=== PATIENT | female | born 1960 | race Caucasian/White ===

== ENCOUNTER 2020-04-17 19:23 | Emergency (ER) | payer SELFPAY ==
[2020-04-17 19:55] VITALS: BP 177/94; PULSE 79; RESP 16; TEMP 36.7; O2SAT 97; BMI 25.3
--- NOTE | 2020-04-18 | ECG_ITS ---
Test Reason : CHEST PAIN Blood Pressure : / mmHG Vent. Rate : 084 BPM Atrial Rate : 084 BPM P-R Int : 132 ms QRS Dur : 100 ms QT Int : 384 ms P-R-T Axes : 037 -17 038 degrees QTc Int : 453 ms Normal sinus rhythm RSR' or QR pattern in V1 suggests right ventricular conduction delay Nonspecific ST and T wave abnormality Abnormal ECG When compared with ECG of 27-NOV-2019 15:55, No significant change was found Referred By: Thom Siddiqui Electronically Signed By:BRADY GIORDANO MD
== END 2020-04-17 21:22 | disposition left against medical advice (07) ==
PROVIDERS: Emergency Provider Internal Medicine; PCP Internal Medicine
DX: R07.9 Chest pain, unspecified (principal)
CPT/HCPCS: 93005; 99283

== ENCOUNTER 2020-04-18 10:51 | Inpatient (IN) | payer OTHER, SELFPAY ==
[2020-04-18] VITALS (7 sets, daily range): BP systolic 137–177; BP diastolic 84–100; PULSE 67–78; RESP 14–23; TEMP 36.4–36.9; O2SAT 16–99; BMI 24.9; BMI 25.5
--- NOTE | 2020-04-18 11:21 | ECG_ITS ---
Test Reason : ABNORMAL EKG Blood Pressure : / mmHG Vent. Rate : 065 BPM Atrial Rate : 065 BPM P-R Int : 138 ms QRS Dur : 104 ms QT Int : 434 ms P-R-T Axes : 039 -23 029 degrees QTc Int : 451 ms Normal sinus rhythm Nonspecific ST and T wave abnormality Abnormal ECG When compared with ECG of 18-APR-2020 11:49, No significant change was found Referred By: Elaine Rasheed Electronically Signed By:BRADY GIORDANO MD
--- NOTE | 2020-04-18 11:37 | PC.NURSE ---
DR ROSE AT THE BEDSIDE FOR INITIAL EVALUATION PT, PT INFORMED OF THE PLAN OF CARE PLACED ON THE EVENT COORDINATOR, NSR DISPLAYED
--- NOTE | 2020-04-18 11:46 | ECG_ITS ---
Test Reason : REPEAT Blood Pressure : / mmHG Vent. Rate : 071 BPM Atrial Rate : 071 BPM P-R Int : 132 ms QRS Dur : 100 ms QT Int : 428 ms P-R-T Axes : 032 -34 032 degrees QTc Int : 465 ms Normal sinus rhythm Left axis deviation Pulmonary disease pattern ST & T wave abnormality, consider lateral ischemia Abnormal ECG When compared with ECG of 04/17/20 T wave inversion more evident in Lateral leads Referred By: Elaine Rasheed Electronically Signed By:BRADY GIORDANO MD
--- NOTE | 2020-04-18 11:46 | ED.CHESTPAIN ---
HPI - Chest Pain General Chief Complaint: Chest Pain Stated Complaint: chest pain,abd pain,hbp Time Seen by Provider: 04/18/20 11:24 Source: patient Mode of arrival: ambulatory Limitations: no limitations History of Present Illness HPI narrative: Patient comes to emergency room complaining of high blood pressure, chest discomfort, abdominal epigastric discomfort. Patient states it has been intermittent for the last 4 days. Patient came here yesterday, EKG was done in triage, patient could not wait to be seen by provider. At this time, patient does not have significant discomfort. Prior to arrival patient took 81 mg of aspirin. Patient also complaining of intermittent episodes of sweating Related Data Home Medications Medication Instructions Recorded Confirmed bupropion HCl 300 mg PO QAM 04/11/20 04/11/20 levothyroxine 50 mcg PO DAILY 04/11/20 04/11/20 lisinopril 10 mg PO DAILY 04/11/20 04/11/20 lorazepam [Ativan] 0.5 mg PO DAILY PRN 04/11/20 04/11/20 mecobalamin (vitamin B12) [B12 1,000 mcg PO DAILY 04/11/20 04/11/20 Active] metoprolol succinate 50 mg PO DAILY 04/11/20 04/11/20 multivitamin 1 cap PO DAILY 04/11/20 04/11/20 zinc 50 mg PO DAILY 04/11/20 04/11/20 Previous Rx's Medication Instructions Recorded fluoxetine [Prozac] 10 mg PO DAILY #14 cap 04/17/20 Allergies Allergy/AdvReac Type Severity Reaction Status Date / Time Penicillins [PENICILLINS] Allergy Intermediate RASH Verified 04/09/20 13:53 egg Allergy Unknown stomach Verified 04/09/20 13:53 upset penicillin V Allergy Unknown rash Verified 04/09/20 13:53 cat dander Allergy Difficulty Verified 04/11/20 14:58 Breathing Review of Systems Review of Systems: Constitutional : No Weight loss, complaining of chills, night sweats, fatigue ENT/Mouth : No Hearing loss, No Ear Pain, No Nasal Congestion, No Sinus Pain, No Hoarseness, No sore throat, No Rhinorrhea, No Swallowing Difficulty Eyes: No Eye Pain, No Swelling, No Redness, No Foreign Body, No Discharge, No Vision Changes Cardiovascular : complaining of chest pressure, No SOB, No Dyspnea on Exertion, No Orthopnea, No Edema, No Palpitations Respiratory : No Cough, No Sputum, No Wheezing, No Smoke Exposure, No Dyspnea Gastrointestinal : No Nausea, No Vomiting, No Diarrhea, No Constipation, complaining of mild epigastric pain Genitourinary : no irregular bleeding, No Dysuria, No Urinary Frequency, No Hematuria, No Urinary Incontinence, No Urgency, No Flank Pain, No Urinary Flow Changes, No Hesitancy Musculoskeletal : No joint pain, No Myalgias, No Joint Swelling Skin : No Skin Lesions, No rash Neuro : No Weakness, No Numbness, No Paresthesias, No Loss of Consciousness, No Dizziness, No Headache Psych : No Anxiety/Panic, No Depression, No SI/HI/AH/VH, No Social Issues, Heme/Lymph: No Bruising, No Bleeding,No Lymphadenopathy Endocrine : No Polyuria, No Polydipsia, No Temperature Intolerance [facility] Past Medical History Medical History (Updated 04/11/20 @ 20:47 by Fabi Diaz APRN) Jonathon's thyroiditis HTN (hypertension) Surgical History History of colonoscopy History of hysteroscopy History of surgery History of tonsillectomy Family History Family History (Updated 04/09/20 @ 13:59 by Tianna Serra Liza, [facility]) Father No problems noted. Mother No problems noted. Maternal Grandmother Breast cancer Brother Arthritis Brother No problems noted. Daughter No problems noted. Son No problems noted. Son No problems noted. Son No problems noted. Social History Social History Household Members: Significant Other Smoking Status: Never smoker Use of substances other than those prescribed or required for medical reasons: No Advance Directives: No Advance Directives Information Provided: No Physical Exam Vital Signs: Vital Signs: Vital Signs Temp Pulse Resp BP Pulse Ox 04/18/20 14:29 98.5 F 68 14 158/93 H 04/18/20 12:58 98 F 67 18 137/85 99 04/18/20 11:06 98 F 77 177/100 H 16 L Body Mass Index 24.9 Course Course Course Narrative: I discussed the EKG changes with Dr. Mulligan, is likely secondary to hypertension. at this time, the 2nd EKG shows persistent changes. Discussed with Dr. Mulligan, patient will be admitted, heparinize, and a stat echo is pending. I discussed the plan with the patient, agrees with plan. MDM - Chest Pain Lab Data Result diagrams: 04/18/20 12:15 04/18/20 12:15 Labs: Lab Results 04/18/20 04/18/20 04/18/20 Range/Units 12:14 12:14 12:15 WBC 4.5 L (4.8-10.8) X10*3/uL RBC 4.50 (4.20-5.50) X10*6/uL Hgb 14.8 (12.0-16.0) g/dl Hct 43.6 (37-47) % MCV 96.9 (80-98) fL MCH 32.9 (27.0-33.0) pg MCHC 33.9 (31.0-35.0) g/dl RDW 11.2 (11.0-16.0) % Plt Count 180 (160-400) X10*3/uL MPV 9.6 (9.4-12.3) fL Immature Gran % (Auto) 0.2 (0.0-0.4) % Neut % (Auto) 65.2 (45-73) % Lymph % (Auto) 24.4 (20-40) % Dickenson % (Auto) 6.2 (2-11) % Eos % (Auto) 3.1 (0-4) % Baso % (Auto) 0.9 (0-2) % Lymph # (Auto) 1.1 L (1.2-4.9) X10*3/uL Dickenson # (Auto) 0.3 (0.1-1.2) X10*3/uL Eos # (Auto) 0.1 (0.0-0.4) X10*3/uL Baso # (Auto) 0.0 (0.0-0.2) X10*3/uL Abs Immat Gran (auto) 0.01 (0.00-0.03) X10*3/uL Absolute Neuts (auto) 2.9 (2.0-8.3) X10*3/uL Absolute Nucleated RBC 0.000 (0.0-0.012) X10*3/uL Nucleated RBC % (auto) 0.0 (0.0-0.2) /100WBC Sodium (135-145) mmol/L Potassium (3.3-5.1) mmol/l Chloride (96-108) mmol/L Carbon Dioxide (22-29) mmol/L Anion Gap (12-20) BUN (9-16) mg/dL Creatinine (0.5-1.4) mg/dL Estim Creat Clear Calc Estimated GFR Random Glucose (60-115) mg/dL Calcium (8.4-10.2) mg/dL Total Bilirubin (0.0-1.0) mg/dL Direct Bilirubin (0.0-0.5) mg/dL AST (5-31) U/L ALT (0-31) U/L Alkaline Phosphatase (39-117) U/L Troponin I High Sens < 3.5 (<3.5-17.0) ng/L Total Protein (6.5-8.0) g/dL Albumin (3.5-5.0) g/dL Lipase (8-78) U/L TSH 2.67 (0.32-4.0) mIU/mL 04/18/20 Range/Units 12:15 WBC (4.8-10.8) X10*3/uL RBC (4.20-5.50) X10*6/uL Hgb (12.0-16.0) g/dl Hct (37-47) % MCV (80-98) fL MCH (27.0-33.0) pg MCHC (31.0-35.0) g/dl RDW (11.0-16.0) % Plt Count (160-400) X10*3/uL MPV (9.4-12.3) fL Immature Gran % (Auto) (0.0-0.4) % Neut % (Auto) (45-73) % Lymph % (Auto) (20-40) % Dickenson % (Auto) (2-11) % Eos % (Auto) (0-4) % Baso % (Auto) (0-2) % Lymph # (Auto) (1.2-4.9) X10*3/uL Dickenson # (Auto) (0.1-1.2) X10*3/uL Eos # (Auto) (0.0-0.4) X10*3/uL Baso # (Auto) (0.0-0.2) X10*3/uL Abs Immat Gran (auto) (0.00-0.03) X10*3/uL Absolute Neuts (auto) (2.0-8.3) X10*3/uL Absolute Nucleated RBC (0.0-0.012) X10*3/uL Nucleated RBC % (auto) (0.0-0.2) /100WBC Sodium 140 (135-145) mmol/L Potassium 4.4 (3.3-5.1) mmol/l Chloride 103 (96-108) mmol/L Carbon Dioxide 27 (22-29) mmol/L Anion Gap 14 (12-20) BUN 9 (9-16) mg/dL Creatinine 0.69 (0.5-1.4) mg/dL Estim Creat Clear Calc 83.1 Estimated GFR > 60 Random Glucose 104 (60-115) mg/dL Calcium 9.4 (8.4-10.2) mg/dL Total Bilirubin 0.9 (0.0-1.0) mg/dL Direct Bilirubin 0.4 (0.0-0.5) mg/dL AST 69 H (5-31) U/L ALT 68 H (0-31) U/L Alkaline Phosphatase 92 (39-117) U/L Troponin I High Sens (<3.5-17.0) ng/L Total Protein 7.1 (6.5-8.0) g/dL Albumin 4.5 (3.5-5.0) g/dL Lipase 22 (8-78) U/L TSH (0.32-4.0) mIU/mL ECG Data ECG #1: Attestation: I personally reviewed and interpreted this ECG as follows: ( normal sinus rhythm, heart rate 65, mild ST segment depressions in V3 V4 V5 with new T-wave inversions compared to EKG from yesterday) Discharge Plan Discharge Prescriptions: No Action metoprolol succinate 50 mg Tablet Extended Release 24 Hr 50 mg PO DAILY RF: 0 lorazepam [Ativan] 0.5 mg Tablet 0.5 mg PO DAILY PRN (Reason: Anxiety) RF: 0 levothyroxine 50 mcg Tablet 50 mcg PO DAILY RF: 0 lisinopril 10 mg Tablet 10 mg PO DAILY RF: 0 multivitamin Capsule 1 cap PO DAILY RF: 0 bupropion HCl 300 mg Tablet Extended Release 24 Hr 300 mg PO QAM RF: 0 zinc 50 mg Capsule 50 mg PO DAILY RF: 0 B12 Active 1,000 mcg Tablet,Chewable 1,000 mcg PO DAILY RF: 0 fluoxetine [Prozac] 10 mg capsule 10 mg PO DAILY Qty: 14 RF: 1
[2020-04-18 12:18] LABS: MANUAL DIFF FLAG NO
[2020-04-18 12:20] LABS: Basophils Percent Auto 0.9 % (0-2); Eosinophils Absolute Auto 0.1 X10*3/uL (0.0-0.4); Eosinophils Percent Auto 3.1 % (0-4); Hematocrit 43.6 % (37-47); Hemoglobin 14.8 g/dl (12.0-16.0); Imm Gran Abs Auto 0.01 X10*3/uL (0.00-0.03); Imm Gran Pct Auto 0.2 % (0.0-0.4); Lymphocytes Absolute Auto 1.1 X10*3/uL (1.2-4.9); Lymphocytes Percent Auto 24.4 % (20-40); Mean Corpuscular HGB Conc 33.9 g/dl (31.0-35.0); Mean Corpuscular Hemoglobin 32.9 pg (27.0-33.0); Mean Corpuscular Volume 96.9 fL (80-98); Mean Platelet Volume 9.6 fL (9.4-12.3); Monocytes Absolute Auto 0.3 X10*3/uL (0.1-1.2); Monocytes Percent Auto 6.2 % (2-11); Neutrophils Absolute Auto 2.9 X10*3/uL (2.0-8.3); Neutrophils Percent Auto 65.2 % (45-73); Platelet Count 180 X10*3/uL (160-400); Red Cell Distribution Width 11.2 % (11.0-16.0); White Blood Count 4.5 X10*3/uL (4.8-10.8)
[2020-04-18 12:54] LABS: Alanine Aminotransferase 68 U/L (0-31); Albumin Level 4.5 g/dL (3.5-5.0); Alkaline Phosphatase 92 U/L (39-117); Anion Gap 14 (12-20); Aspartate Amino Transferase 69 U/L (5-31); Bilirubin Direct 0.4 mg/dL (0.0-0.5); Bilirubin Total 0.9 mg/dL (0.0-1.0); Blood Urea Nitrogen 9 mg/dL (9-16); Calcium 9.4 mg/dL (8.4-10.2); Carbon Dioxide 27 mmol/L (22-29); Chloride 103 mmol/L (96-108); Creatinine Clr Calc Pharmacy 83.1; Estimated Glomerular Filt Rate > 60; Glucose Random 104 mg/dL (60-115); Lipase 22 U/L (8-78); Potassium 4.4 mmol/l (3.3-5.1); Sodium 140 mmol/L (135-145); Total Protein 7.1 g/dL (6.5-8.0)
[2020-04-18 13:00] LABS: Troponin-I High Sensitivity < 3.5 ng/L (<3.5-17.0)
[2020-04-18] MEDS: Aspirin Enteric Coated 325 MG TABLET.DR PO (13:13)
[2020-04-18 13:15] LABS: TSH reflex Free T4 2.67 mIU/mL (0.32-4.0)
[2020-04-18 15:53] LABS: Hematocrit 42.2 % (37-47); Hemoglobin 14.4 g/dl (12.0-16.0); Mean Corpuscular HGB Conc 34.1 g/dl (31.0-35.0); Mean Corpuscular Volume 96.8 fL (80-98); Platelet Count 196 X10*3/uL (160-400); Red Blood Count 4.36 X10*6/uL (4.20-5.50); Red Cell Distribution Width 11.3 % (11.0-16.0); White Blood Count 4.6 X10*3/uL (4.8-10.8)
[2020-04-18 15:59] LABS: Prothrombin Time 11.5 SEC (10.8-13.0)
[2020-04-18 16:02] LABS: PTT Heparin Drip 33.1 SEC (53-77.9)
[2020-04-18 16:24] LABS: Troponin-I High Sensitivity < 3.5 ng/L (<3.5-17.0)
[2020-04-18] MEDS: Heparin Sodium,Porcine 5,000 UNIT/ML VIAL 4000 UNIT IVPUSH (16:42)
[2020-04-18] MEDS: Heparin Sodium,Porcine/1/2NS 25,000 UNIT/250 ML IV.SOLN 9.8 UNIT IVCONT (16:47)
--- NOTE | 2020-04-18 16:57 | PC.NURSE ---
patient's medicated per emar as noted.
--- NOTE | 2020-04-18 17:13 | P.HPIM_ITS ---
History of Present Illness Date of Service: 04/18/20 <EDENILSON Landeros - Last Filed: 04/18/20 18:16> Chief Complaint: chest pain <EDENILSON Landeros - Last Filed: 04/18/20 18:16> this is a 59-year-old female with a history of hypertension , anxiety, thyroid disease who presents to the emergency department with chest pain. Patient has been having intermittent chest pain for the past 4 days. Her pain is located in the left side of her chest and under her armpit. She reports it feels like a bubble inside. it is described as 5/10 in severity and lasting a few seconds in duration. It does not seem to be associated with activity or deep inspiration. She has also been having intermittent nausea but not occurring at the same time as her chest pain. She does note her blood pressure has been somewhat elevated over the past few days. She came to the emergency department yesterday and had an EKG which was unremarkable. Unfortunately, she was unable to wait to be evaluated by a provider. She returned today due to recurrent pain and an EKG was repeated. Today EKG showed T-wave inversions in leads V3 through v5. Her cardiac enzymes were negative. Given her EKG changes the EKG was reviewed by Cardiology who recommended starting anticoagulation. She is currently chest pain free. <EDENILSON Landeros - Last Filed: 04/18/20 18:16> Review of Systems Review of Systems: Yes all other systems are reviewed and are negative <EDENILSON Landeros - Last Filed: 04/18/20 18:16> Cardiovascular: Cardiovascular: Reports chest pain and Denies dyspnea <EDENILSON Landeros - Last Filed: 04/18/20 18:16> Respiratory: Respiratory: Denies dyspnea <EDENILSON Landeros Last Filed: 04/18/20 18:16> Gastrointestinal: Gastrointestinal: Reports dyspepsia and Reports nausea <EDENILSON Landeros Last Filed: 04/18/20 18:16> [facility] Medical History: Medical History (Updated 04/19/20 @ 11:19 by Girish Mulligan MD) Anxiety Depression Jonathon's thyroiditis HTN (hypertension) <EDENILSON Landeros Last Filed: 04/18/20 18:16> Functional capacity: independent ambulation <EDENILSON Landeros - Last Filed: 04/18/20 18:16> Family History: Family History (Updated 04/18/20 @ 17:27 by EDENILSON Landeros) Father No problems noted. Mother No problems noted. Maternal Grandmother Breast cancer Brother Arthritis Brother No problems noted. Daughter No problems noted. Son No problems noted. Son No problems noted. Son No problems noted. Sister Congenital bicuspid aortic valve <EDENILSON Landeros - Last Filed: 04/18/20 18:16> Surgical History: Surgical History History of colonoscopy History of hysteroscopy History of surgery History of tonsillectomy <EDENILSON Landeros - Last Filed: 04/18/20 18:16> Social History: Social History (Updated 04/18/20 @ 17:28 by EDENILSON Landeros) Household Members: Significant Other Housing: House Do you presently have visiting nurse or other home services: No Alcohol intake: current Alcohol intake frequency: 0-2 drinks per day Alcohol type: wine Smoking Status: Never smoker Smoked in Last 30 Days: No Use of substances other than those prescribed or required for medical reasons: No Currently Displaying Signs/Symptoms of Drug Intoxication Withdrawal: No Have you been hit, kicked, punched, or otherwise hurt by someone within the past year? If so, by whom?: No Do you feel safe in your current relationship?: Yes Is there a partner from a previous relationship who is making you feel unsafe now?: No Are you made to feel afraid or neglected: No Advance Directives: No Advance Directives Information Provided: No Do you have thoughts of harming others: None Do you have a plan to hurt others: No Plan Recently lost weight without trying: No service: No <EDENILSON Landeros - Last Filed: 04/18/20 18:16> Meds Allergies/Adverse reactions: Allergies Allergy/AdvReac Type Severity Reaction Status Date / Time Penicillins [PENICILLINS] Allergy Intermediate RASH Verified 04/09/20 13:53 egg Allergy Unknown stomach Verified 04/09/20 13:53 upset penicillin V Allergy Unknown rash Verified 04/09/20 13:53 cat dander Allergy Difficulty Verified 04/11/20 14:58 Breathing <EDENILSON Landeros Last Filed: 04/18/20 18:16> Home medications: Home Medications Medication Instructions Recorded Confirmed Type bupropion HCl 300 mg PO QAM 04/11/20 04/18/20 History levothyroxine 50 mcg PO DAILY 04/11/20 04/18/20 History lorazepam [Ativan] 0.5 mg PO BEDTIME PRN 04/11/20 04/18/20 History metoprolol succinate 50 mg PO DAILY 04/11/20 04/18/20 History multivitamin 1 cap PO DAILY 04/11/20 04/18/20 History zinc 50 mg PO DAILY 04/11/20 04/18/20 History <EDENILSON Landeros Last Filed: 04/18/20 18:16> Physical Exam Vital Signs and Narrative: Vital Signs: Last Vital Signs Temp 98.5 F 04/18/20 14:29 Pulse 68 04/18/20 15:48 Resp 23 H 04/18/20 15:48 BP 167/98 H 04/18/20 15:48 Pulse Ox 98 04/18/20 15:48 Body Mass Index 25.5 <EDENILSON Landeros Last Filed: 04/18/20 18:16> Const: Nutritional Appearance: well nourished <EDENILSON Landeros Last Filed: 04/18/20 18:16> Orientation/consciousness: patient oriented x3 <EDENILSON Landeros Last Filed: 04/18/20 18:16> HENMT: Head: Yes normocephalic and Yes atraumatic <EDENILSON Landeros Last Filed: 04/18/20 18:16> Eyes: Sclerae: sclerae normal <EDENILSON Landeros Last Filed: 04/18/20 18:16> Chest: Chest palpation & inspection: normal inspection of the chest <EDENILSON Landeros Last Filed: 04/18/20 18:16> Resp: Effort & Inspection: normal respiratory effort and no respiratory distress <EDENILSON Landeros Last Filed: 04/18/20 18:16> Auscultation: clear to auscultation bilaterally <EDENILSON Landeros - Last Filed: 04/18/20 18:16> Cardio: Rate: regular rate <EDENILSON Landeros - Last Filed: 04/18/20 18:16> Rhythm: regular rhythm <EDENILSON Landeros - Last Filed: 04/18/20 18:16> GI: Palpation (GI): Soft to palpation and nontender <EDENILSON Landeros - Last Filed: 04/18/20 18:16> Skin: General skin exam: no rashes or lesions noted <EDENILSON Landeros - Last Filed: 04/18/20 18:16> Neuro: General: patient oriented x3 <EDENILSON Landeros - Last Filed: 04/18/20 18:16> Cranial nerves: Yes CN's II-XII intact bilaterally and Yes Bilaterally intact EOM present <EDENILSON Landeros - Last Filed: 04/18/20 18:16> Extrem: General: Yes normal to inspection <EDENILSON Landeros - Last Filed: 04/18/20 18:16> Results Labs Labs: Laboratory Tests 04/18/20 04/18/20 04/18/20 12:14 12:14 12:15 WBC 4.5 L RBC 4.50 Hgb 14.8 Hct 43.6 MCV 96.9 MCH 32.9 MCHC 33.9 RDW 11.2 Plt Count 180 MPV 9.6 Immature Gran % (Auto) 0.2 Neut % (Auto) 65.2 Lymph % (Auto) 24.4 [place] % (Auto) 6.2 Eos % (Auto) 3.1 Baso % (Auto) 0.9 Lymph # (Auto) 1.1 L [place] # (Auto) 0.3 Eos # (Auto) 0.1 Baso # (Auto) 0.0 Abs Immat Gran (auto) 0.01 Absolute Neuts (auto) 2.9 Absolute Nucleated RBC 0.000 Nucleated RBC % (auto) 0.0 PT INR PTT (Heparin Protocol) Sodium Potassium Chloride Carbon Dioxide Anion Gap BUN Creatinine Estim Creat Clear Calc Estimated GFR Random Glucose Calcium Total Bilirubin Direct Bilirubin AST ALT Alkaline Phosphatase Troponin I High Sens < 3.5 Total Protein Albumin Lipase TSH 2.67 04/18/20 04/18/20 04/18/20 12:15 15:42 15:42 WBC 4.6 L RBC 4.36 Hgb 14.4 Hct 42.2 MCV 96.8 MCH 33.0 MCHC 34.1 RDW 11.3 Plt Count 196 MPV 10.0 Immature Gran % (Auto) Neut % (Auto) Lymph % (Auto) [place] % (Auto) Eos % (Auto) Baso % (Auto) Lymph # (Auto) [place] # (Auto) Eos # (Auto) Baso # (Auto) Abs Immat Gran (auto) Absolute Neuts (auto) Absolute Nucleated RBC 0.000 Nucleated RBC % (auto) 0.0 PT INR PTT (Heparin Protocol) Sodium 140 Potassium 4.4 Chloride 103 Carbon Dioxide 27 Anion Gap 14 BUN 9 Creatinine 0.69 Estim Creat Clear Calc 83.1 Estimated GFR > 60 Random Glucose 104 Calcium 9.4 Total Bilirubin 0.9 Direct Bilirubin 0.4 AST 69 H ALT 68 H Alkaline Phosphatase 92 Troponin I High Sens < 3.5 Total Protein 7.1 Albumin 4.5 Lipase 22 TSH 04/18/20 15:42 WBC RBC Hgb Hct MCV MCH MCHC RDW Plt Count MPV Immature Gran % (Auto) Neut % (Auto) Lymph % (Auto) [place] % (Auto) Eos % (Auto) Baso % (Auto) Lymph # (Auto) [place] # (Auto) Eos # (Auto) Baso # (Auto) Abs Immat Gran (auto) Absolute Neuts (auto) Absolute Nucleated RBC Nucleated RBC % (auto) PT 11.5 INR 1.0 PTT (Heparin Protocol) 33.1 L Sodium Potassium Chloride Carbon Dioxide Anion Gap BUN Creatinine Estim Creat Clear Calc Estimated GFR Random Glucose Calcium Total Bilirubin Direct Bilirubin AST ALT Alkaline Phosphatase Troponin I High Sens Total Protein Albumin Lipase TSH <EDENILSON Landeros - Last Filed: 04/18/20 18:16> Assessment and Plan (1) Chest pain: Status: Acute <EDENILSON Landeros - Last Filed: 04/18/20 18:16> this is a 59-year-old female with a history of hypertension, thyroid disease, anxiety, depression who presents to the emergency department with chest pain found to have new EKG changes unstable angina troponin negative x2. although chest pain sounds atypical, EKG showing new T- wave inversions when compared to yesterday - anticoagulation with heparin per Cardiology recommendation - lipid profile - statin, baby aspirin - continue home dose of metoprolol - echocardiogram - cardiology consult to help direct further management hypertension somewhat elevated - continue lisinopril, metoprolol - monitor blood pressure closely and up titrate medication as needed thyroid - continue Synthroid mode - continue bupropion, fluoxetine, Ativan daily alcohol use low risk for withdrawal. no evidence for withdrawal at this time. -CIWA DVT prophylaxis- heparin drip code status- full code this case was discussed with Dr. Corado <EDENILSON Landeros - Last Filed: 04/18/20 18:16>
--- NOTE | 2020-04-18 17:46 | PM.EVENT ---
Event Note Event Note: Patient seen and examined. Case discussed with EDENILSON Glass. Agree with her history and physical. 59 yo F being admitted for EKG changes and atypical chest pain. On heparin Gtt Cardiology consult echo ativan for her anxiety
[2020-04-18 18:44] LABS: SARS COV2 PCR INHOUSE NEGATIVE (Negative)
--- NOTE | 2020-04-18 20:24 | PC.NURSE ---
PATIENT CALLED TO GIVE REPORT TO FLOOR. I WAS TOLD THAT THE RN WOULD CALL ME BACK
[2020-04-18] MEDS: Atorvastatin Calcium 40 MG TABLET PO (21:39)
[2020-04-18] MEDS: 0.9 % Sodium Chloride Flush 3 ML SYRINGE IVFLUSH (21:40)
[2020-04-18] MEDS: LORazepam 0.5 MG TABLET PO (21:40)
[2020-04-18 23:24] LABS: PTT Heparin Drip 94.1 SEC (53-77.9)
--- NOTE | 2020-04-19 | ECG_ITS ---
Test Reason : CHEST PAIN Blood Pressure : / mmHG Vent. Rate : 065 BPM Atrial Rate : 065 BPM P-R Int : 156 ms QRS Dur : 102 ms QT Int : 410 ms P-R-T Axes : 039 -22 020 degrees QTc Int : 426 ms Normal sinus rhythm ST & T wave abnormality, consider anterolateral ischemia Abnormal ECG When compared with ECG of 18-APR-2020 14:43, No significant change was found Referred By: Elaine Rasheed Electronically Signed By:BRADY GIORDANO MD
--- NOTE | 2020-04-19 00:52 | PC.NURSE ---
PTT HD RSULTED HIGH AT 94.1. GTT TURNED OFF FOR 1 HOUR PER PROTOCOL AND RESTARTED AT 0040 AT 11 UNITS/KG/HR. DRIP WAS DECREASED BY 3UNITS/KG/HR. NO S/SX BLEEDING. NEXT PTT-HD DUE AT 0640. WILL CONTIUE TO MONITOR. CALL [facility] IN REACH.
[2020-04-19 03:12] VITALS: BP 144/77; PULSE 76; RESP 18; TEMP 37; O2SAT 98
[2020-04-19 06:48] LABS: Cholesterol 191 mg/dL; HDL Cholesterol 50 mg/dL; LDL Cholesterol Calculated 88 mg/dl; Triglycerides 266 mg/dL
[2020-04-19 06:54] LABS: Hemoglobin 13.6 g/dl (12.0-16.0); Mean Corpuscular Volume 99.5 fL (80-98); PLT CLUMP 1; Red Cell Distribution Width 11.2 % (11.0-16.0)
[2020-04-19 06:56] LABS: Hematocrit 40.3 % (37-47); Mean Corpuscular HGB Conc 33.7 g/dl (31.0-35.0); Mean Corpuscular Hemoglobin 33.6 pg (27.0-33.0); Red Blood Count 4.05 X10*6/uL (4.20-5.50); White Blood Count 5.3 X10*3/uL (4.8-10.8)
[2020-04-19 06:57] LABS: INTERNATIONAL NORM RATIO 0.9 (0.9-1.1); Prothrombin Time 10.9 SEC (10.8-13.0)
[2020-04-19 07:20] VITALS: BP 137/82; RESP 18; TEMP 36.6; O2SAT 97
[2020-04-19 07:35] LABS: Platelet Count 122 X10*3/uL (160-400)
--- NOTE | 2020-04-19 09:01 | MHC.CM.PN ---
Addendum entered by Alea Beaulieu 04/19/20 11:03: change in plan Original Note: pt being transferred to [facility]
--- NOTE | 2020-04-19 10:48 | PM.CNCAR ---
History of Present Illness History of Present Illness Date of Consult: April 19, 2020 Requesting physician: Sid Corado Chief complaint: Unstable angina, abnormal ECG Narrative: 59-year-old female with abnormal ECG and chest discomfort. She has background of anxiety and panic attacks. She was seen by Dr Haynes in 2017 for high BP and anterolateral TWI with ST depressions. These changes were thought to be due to elevated BP. She report subsequent work including stress testing/echo and was told that it was normal. She now presented with 1 week h/o feeling sweat, chills and abdominal pain after eating seafood. She also had off and on left sided pressure like feeling lasting few seconds and which would come in waves. With these symptoms she came in on 04/17/20 but left AMA. 04/18/20 she presented again but ECG showed anterolateral TWI which were not obvious on 04/17/20 ECG. Her BP was high 2nd time. She has been ruled out with 2 sets of HS troponins. Her of cancer in Apr 2 years ago and she has been emotional. She is currently on heparin gtt. No other active issues right now. BP is better now. Review of Systems Review of Systems: Is symptomatic right now. Came with abdominal discomfort, chills, sweating and chest discomfort PMFSH Past Medical History Medical History (Updated 04/19/20 @ 11:19 by Girish Mulligan MD) Anxiety Depression Jonathon's thyroiditis HTN (hypertension) Functional capacity: independent ambulation Family History Family History (Updated 04/18/20 @ 17:27 by EDENILSON Landeros) Father No problems noted. Mother No problems noted. Maternal Grandmother Breast cancer Brother Arthritis Brother No problems noted. Daughter No problems noted. Son No problems noted. Son No problems noted. Son No problems noted. Sister Congenital bicuspid aortic valve Surgical History Surgical History History of colonoscopy History of hysteroscopy History of surgery History of tonsillectomy Social History Social History (Updated 04/18/20 @ 17:28 by EDENILSON Landeros) Household Members: Significant Other Housing: House Do you presently have visiting nurse or other home services: No Alcohol intake: current Alcohol intake frequency: 0-2 drinks per day Alcohol type: wine Smoking Status: Never smoker Smoked in Last 30 Days: No Use of substances other than those prescribed or required for medical reasons: No Have you been hit, kicked, punched, or otherwise hurt by someone within the past year? If so, by whom?: No Do you feel safe in your current relationship?: Yes Is there a partner from a previous relationship who is making you feel unsafe now?: No Are you made to feel afraid or neglected: No Advance Directives: No Advance Directives Information Provided: No Do you have thoughts of harming others: None Do you have a plan to hurt others: No Plan Recently lost weight without trying: No Meds Allergies Allergy/AdvReac Type Severity Reaction Status Date / Time Penicillins [PENICILLINS] Allergy Intermediate RASH Verified 04/09/20 13:53 egg Allergy Unknown stomach Verified 04/09/20 13:53 upset penicillin V Allergy Unknown rash Verified 04/09/20 13:53 cat dander Allergy Difficulty Verified 04/11/20 14:58 Breathing Home Medications Medication Instructions Recorded Confirmed Type bupropion HCl 300 mg PO QAM 04/11/20 04/18/20 History levothyroxine 50 mcg PO DAILY 04/11/20 04/18/20 History lisinopril 10 mg PO DAILY 04/11/20 04/18/20 History lorazepam [Ativan] 0.5 mg PO BEDTIME PRN 04/11/20 04/18/20 History metoprolol succinate 50 mg PO DAILY 04/11/20 04/18/20 History multivitamin 1 cap PO DAILY 04/11/20 04/18/20 History zinc 50 mg PO DAILY 04/11/20 04/18/20 History Physical Exam Vital Signs: Vital Signs: Last Vital Signs Temp 98 F 04/19/20 07:20 Pulse 76 04/19/20 03:12 Resp 18 04/19/20 07:20 BP 137/82 04/19/20 07:20 Pulse Ox 97 04/19/20 07:20 Body Mass Index 25.5 GENERAL APPEARANCE: in no acute distress, well developed, well nourished. HEENT: unremarkable. HEAD: normocephalic, atraumatic. NECK/THYROID: no carotid bruit, no jugular venous distention. SKIN: no suspicious lesions, warm and dry. HEART: no murmurs, regular rate and rhythm, S1, S2 normal. LUNGS: clear to auscultation bilaterally. ABDOMEN: normal, bowel sounds present, soft, nontender, nondistended. EXTREMITIES: no clubbing, cyanosis, or edema. PERIPHERAL PULSES: equal. NEUROLOGIC: nonfocal, alert and oriented. PSYCH: mood/affect full range. Results Labs and Meds Result diagrams: 04/19/20 05:25 04/18/20 12:15 Lab results: Laboratory Results - last 24 hr 04/18/20 04/18/20 04/18/20 12:14 12:14 12:15 WBC 4.5 L RBC 4.50 Hgb 14.8 Hct 43.6 MCV 96.9 MCH 32.9 MCHC 33.9 RDW 11.2 Plt Count 180 MPV 9.6 Immature Gran % (Auto) 0.2 Neut % (Auto) 65.2 Lymph % (Auto) 24.4 [place] % (Auto) 6.2 Eos % (Auto) 3.1 Baso % (Auto) 0.9 Lymph # (Auto) 1.1 L [place] # (Auto) 0.3 Eos # (Auto) 0.1 Baso # (Auto) 0.0 Abs Immat Gran (auto) 0.01 Absolute Neuts (auto) 2.9 Absolute Nucleated RBC 0.000 Nucleated RBC % (auto) 0.0 PT INR PTT (Heparin Protocol) Sodium Potassium Chloride Carbon Dioxide Anion Gap BUN Creatinine Estim Creat Clear Calc Estimated GFR Random Glucose Calcium Total Bilirubin Direct Bilirubin AST ALT Alkaline Phosphatase Troponin I High Sens < 3.5 Total Protein Albumin Triglycerides Cholesterol LDL Cholesterol, Calc HDL Cholesterol Lipase TSH 2.67 Coronavirus (PCR) 04/18/20 04/18/20 04/18/20 12:15 15:42 15:42 WBC 4.6 L RBC 4.36 Hgb 14.4 Hct 42.2 MCV 96.8 MCH 33.0 MCHC 34.1 RDW 11.3 Plt Count 196 MPV 10.0 Immature Gran % (Auto) Neut % (Auto) Lymph % (Auto) [place] % (Auto) Eos % (Auto) Baso % (Auto) Lymph # (Auto) [place] # (Auto) Eos # (Auto) Baso # (Auto) Abs Immat Gran (auto) Absolute Neuts (auto) Absolute Nucleated RBC 0.000 Nucleated RBC % (auto) 0.0 PT INR PTT (Heparin Protocol) Sodium 140 Potassium 4.4 Chloride 103 Carbon Dioxide 27 Anion Gap 14 BUN 9 Creatinine 0.69 Estim Creat Clear Calc 83.1 Estimated GFR > 60 Random Glucose 104 Calcium 9.4 Total Bilirubin 0.9 Direct Bilirubin 0.4 AST 69 H ALT 68 H Alkaline Phosphatase 92 Troponin I High Sens < 3.5 Total Protein 7.1 Albumin 4.5 Triglycerides Cholesterol LDL Cholesterol, Calc HDL Cholesterol Lipase 22 TSH Coronavirus (PCR) 04/18/20 04/18/20 04/18/20 15:42 15:42 22:47 WBC RBC Hgb Hct MCV MCH MCHC RDW Plt Count MPV Immature Gran % (Auto) Neut % (Auto) Lymph % (Auto) [place] % (Auto) Eos % (Auto) Baso % (Auto) Lymph # (Auto) [place] # (Auto) Eos # (Auto) Baso # (Auto) Abs Immat Gran (auto) Absolute Neuts (auto) Absolute Nucleated RBC Nucleated RBC % (auto) PT 11.5 INR 1.0 PTT (Heparin Protocol) 33.1 L 94.1 H D Sodium Potassium Chloride Carbon Dioxide Anion Gap BUN Creatinine Estim Creat Clear Calc Estimated GFR Random Glucose Calcium Total Bilirubin Direct Bilirubin AST ALT Alkaline Phosphatase Troponin I High Sens Total Protein Albumin Triglycerides Cholesterol LDL Cholesterol, Calc HDL Cholesterol Lipase TSH Coronavirus (PCR) NEGATIVE 04/19/20 04/19/20 04/19/20 05:25 05:25 05:25 WBC 5.3 RBC 4.05 L Hgb 13.6 Hct 40.3 MCV 99.5 H MCH 33.6 H MCHC 33.7 RDW 11.2 Plt Count 122 L D MPV Not Reportable Immature Gran % (Auto) Neut % (Auto) Lymph % (Auto) [place] % (Auto) Eos % (Auto) Baso % (Auto) Lymph # (Auto) [place] # (Auto) Eos # (Auto) Baso # (Auto) Abs Immat Gran (auto) Absolute Neuts (auto) Absolute Nucleated RBC 0.000 Nucleated RBC % (auto) 0.0 PT 10.9 INR 0.9 PTT (Heparin Protocol) Cancelled Sodium Potassium Chloride Carbon Dioxide Anion Gap BUN Creatinine Estim Creat Clear Calc Estimated GFR Random Glucose Calcium Total Bilirubin Direct Bilirubin AST ALT Alkaline Phosphatase Troponin I High Sens Total Protein Albumin Triglycerides Cholesterol LDL Cholesterol, Calc HDL Cholesterol Lipase TSH Coronavirus (PCR) 04/19/20 05:25 WBC RBC Hgb Hct MCV MCH MCHC RDW Plt Count MPV Immature Gran % (Auto) Neut % (Auto) Lymph % (Auto) [place] % (Auto) Eos % (Auto) Baso % (Auto) Lymph # (Auto) [place] # (Auto) Eos # (Auto) Baso # (Auto) Abs Immat Gran (auto) Absolute Neuts (auto) Absolute Nucleated RBC Nucleated RBC % (auto) PT INR PTT (Heparin Protocol) Sodium Potassium Chloride Carbon Dioxide Anion Gap BUN Creatinine Estim Creat Clear Calc Estimated GFR Random Glucose Calcium Total Bilirubin Direct Bilirubin AST ALT Alkaline Phosphatase Troponin I High Sens Total Protein Albumin Triglycerides 266 Cholesterol 191 LDL Cholesterol, Calc 88 HDL Cholesterol 50 Lipase TSH Coronavirus (PCR) Assessment and Plan (1) Chest pain: Qualifiers: Chest pain type: unspecified Qualified Code(s): R07.9 - Chest pain, unspecified Status: Acute (2) HTN (hypertension): Qualifiers: Hypertension type: essential hypertension Qualified Code(s): I10 - Essential (primary) hypertension Status: Acute (3) Abnormal ECG: Status: Acute pleasant 59-year-old female who is here for multiple complaints. She has been experiencing abdominal discomfort, chills and sweating after she ate seafood over the weekend. Symptoms sound like gastroenteritis. She also is experiencing left-sided pressure-like chest discomfort which comes and goes for seconds at rest. This does not happen when she moves. Her ECG is abnormal showing anterolateral T-wave inversions and mild ST depressions. These changes are new compared to April 17 but reviewing her records from before she presented in 2018 with some atypical chest discomfort and had similar EKG changes. She was seen by Dr. Serafin dan over that time and it appears she had stress testing done which she reports was normal. I will get the records of that. For now I think we would check an echocardiogram to make sure she does not have a wall motion abnormality. Her troponins are negative. If echo is normal I think we control of blood pressure which was elevated on admission. Her presentation in 2018 was also in the setting of high blood pressure and it was thought that her ECG changes were due to hypertension. We will follow along with you. Thank you for allowing me to participate in the care of your patient. Please feel free to contact me if you have any questions.
[2020-04-19] MEDS: buPROPion HCl XL 300 MG TAB.ER.24H PO (10:51)
[2020-04-19] MEDS: Levothyroxine Sodium 50 MCG TABLET PO (10:51)
[2020-04-19] MEDS: Aspirin Enteric Coated 81 MG TABLET.DR PO (10:51)
[2020-04-19] MEDS: Metoprolol Succinate ER 50 MG TAB.ER.24H PO (10:52)
[2020-04-19] MEDS: lisinopriL 10 MG TABLET PO (10:52)
[2020-04-19 11:33] LABS: PTT Heparin Drip 63.8 SEC (53-77.9)
[2020-04-19 12:00] VITALS: BP 149/97; PULSE 74; RESP 19; TEMP 36.1; O2SAT 99
--- NOTE | 2020-04-19 12:29 | MHC.CM.PN ---
met with pt who explinsm that she is indepdendent her car is in parking lot and she will be leaving next fri to go to her condo in [place] and mwill be nthere till roz cm intervention are not indicated
--- NOTE | 2020-04-19 15:03 | CA_ITS ---
Transthoracic Echocardiogram Patient (Last, First, Middle): Leigh Ann Schulte C Gender: Female Date of : 1960 Age: 59 Procedure Date: 04/19/2020 Procedure Type: Transthoracic Echocardiogram Location: [facility] [place] Height: 167. cm Weight: 72. kg BSA: 1.81 m2 Heart Rate: bpm BP: 144 / 77 mmHg Driller Hand: Referring MD: Elaine Rasheed MD Symptoms: new t wave inversions, requested by Dr. Mulligan Study Quality: Fair ECG Rhythm: Sinus Conclusions: - Normal biventricular function. No significant valvular or pericardial pathology noted. Normal PA pressures. Findings Procedure Information Contrast agent, definity, is being given per protocol without apparent complications. Left Ventricle Normal left ventricular size and systolic function. There is mildly increased left ventricular wall thickness. The visually estimated ejection fraction is between 55-60%. There is no evidence of regional wall motion abnormalities. Diastolic function is normal for age. Right Ventricle Normal right ventricular cavity size and systolic function. Atria Both atria are normal in size. There is no evidence of interatrial shunt by color Doppler. Aortic Valve The aortic valve was not well visualized. There is no aortic valve stenosis. There is no aortic valve regurgitation. Mitral Valve Normal mitral valve structure and function. There is trace mitral valve regurgitation. There is no mitral valve stenosis. Pulmonic Valve The pulmonic valve is likely normal. Tricuspid Valve Normal tricuspid valve structure and function. There is no tricuspid valve regurgitation. Normal right atrial pressure. There is no evidence of pulmonary hypertension. Great Vessels All visible segments of the aorta are normal in size. The visualized portions of the pulmonary artery and branches are normal. Venous The inferior vena cava is normal in size and collapses greater than 50% with inspiration. Pericardium/Pleural There is no evidence of pericardial effusion. Measurements 2D Linear Measurements IVSd: 0.92 0.6-0.9/0.6-1.0 cm LVIDd: 4.68 3.9-5.3/4.2-5.9 cm LVIDd Index: 2.59 2.4-3.2/2.2-3.1 cm/m2 LVIDs: 2.62 2.0-3.6 cm LVPWd: 1.07 0.7-1.1 cm Ao Root: 2.90 2.1-3.5 cm LA Diam: 3.70 2.7-3.8/3.0-4.0 cm LAIDs Index: 2.04 1.5-2.3 cm/m2 LV Mass: 202.56 67-162/88-224 g LV Mass Index: 111.91 43-95/49-115 g/m2 LVOT Diam: 2.30 3.0+(-)1.3 cm Mitral Valve MV Pk E: 0.51 MV PK A: 0.75 MV Decel Time: 185.00 E/A: 0.70 E'Lateral: 7.83 E'Medial: 5.22 E/E' Med: 9.70 E/E' Lat: 6.50 PHT: 54.00 MVA PHT: 4.07 Decel Dixon: 2.73 Aortic Valve AoV Pk Leonardo: 1.28 AoV Mn Leonardo: 0.86 AoV VTI: 0.29 AoV Pk Grad: 7.00 Aov Mn Grad: 3.00 KRISTYN Cont.VTI: 2.65 LVOT LVOT Pk Leonardo: 0.85 LVOT Mn Leonardo: 0.57 LVOT VTI: 0.19 LVOT Pk Grad: 3.00 LVOT Mn Grad: 2.00 LVOT Diam: 2.30 LVOT Area: 4.15 Diastolic Function MV Pk E: 0.51 MV Pk A: 0.75 E/A: 0.70 E'Medial: 5.22 E/E' Med: 9.70 E' Laterial: 7.83 E/E' Lat: 6.50 Tricuspid Valve TR Pk Leonardo: 2.11 TR Pk Grad: 18.00 RA Press: 3.00 RVSP: 21.00 Great Vessels Aorta Ao Root-2D: 2.90 2.0-3.7 cm Pulmonary Valve PV Pk Leonardo: 0.75 Peak PV Grad: 2.00 Updated in Other Vendor System with Status of Final Girish Mulligan MD electronically signed on 04/19/2020 12:41:56 PM with status of Final
[2020-04-19 15:52] VITALS: BP 136/87; PULSE 75; RESP 18; TEMP 36.8; O2SAT 98
--- NOTE | 2020-04-19 15:54 | PM.DS ---
DS: Providers Provider Date of admission: 04/18/20 17:07 Primary care physician: Taina Coleman MD Consults: 04/18/20 19:45 Consult to Cardiology Routine Consulting Provider: Girish Mulligan Reason for consultation: chest pain with ekg changes Has provider been notified: No DS: Diagnosis Discharge Diagnosis (1) Chest pain: Status: Acute (2) HTN (hypertension): Status: Acute (3) Abnormal ECG: Status: Acute (4) Unstable angina: Status: Acute Problem details: Ruled Out DS: Summary Hospital Course Hospital Course: Patients presentation was concerning for possible unstable angina. She was started on IV heparin gtt and was admitted to telemetry. She was seen by cardiology (Dr. Mulligan) the morning after admission who compared the patients admission EKG to previous EKG's from 2018, which were deemded similar. She underwent a 2d Echo which showed norvmal Biventricular function and no RWMA. Her high sensitivity trop-I was negative x 2. Her chest pain had resolved. Putting all the above together, she was ruled out for ACS/Unstable angina. Cardiology recommended beta-shankar (which she is already on) + aspirin 81 (which she will be discharged on). They also recommended for her to f/u with her outpatient transfusion aide -- Dr. Haynes for outpatient stress test. Likely cause of her pain was not definitely identified, but suspect exacerbated by her psychosocial issues on going. Additionally, her BP was on the higher end and possibly could have contributed. Her lisinopril will be increased from 10mg to 20mg daily. Time Spent with Patient Time attestation: Total time spent providing and/or coordinating discharge services: Physical Exam Vital Signs: Vital Signs: Last Vital Signs Temp 96.9 F 04/19/20 12:00 Pulse 74 04/19/20 12:00 Resp 19 04/19/20 12:00 BP 149/97 H 04/19/20 12:00 Pulse Ox 99 04/19/20 12:00 Body Mass Index 25.5 General - no acute distress, appears comfortable Cardiovascular - regular rate and rhythm, S1-S2 Lungs - normal respiratory effort, clear to auscultation bilaterally, no wheezing Abdomen - soft, nontender, no rebound regarding Extremities - no edema bilaterally Neuro - awake and alert, no focal deficits DS: Data Data Completed and Pending Labs on day of discharge: 04/18/20 11:21 ECG 12 lead EKG Stat 04/18/20 11:30 0.9 % Sodium Chloride [Ns] 1,000 ml IVCONT 999 mls/hr 04/18/20 11:45 Aspirin Enteric Coated [Ecotrin] 325 mg PO ONCE ONE 04/18/20 11:46 ECG 12 lead EKG Stat EKG Documentation DIRECTED 04/18/20 12:14 TSH reflex Free T4 Stat Troponin-I High Sensitivity Stat 04/18/20 12:15 Basic Metabolic Panel Stat Complete Blood Count Auto Diff Stat Lipase Stat Liver Panel Stat 04/18/20 14:31 EKG Documentation DIRECTED 04/18/20 15:16 Heparin Sodium,Porcine 4,000 unit IV ONCE ONE 04/18/20 15:21 Heparin Sodium,Porcine 2,800 unit IVPUSH BOLUS PRN Heparin Sodium,Porcine 5,600 unit IVPUSH BOLUS PRN 04/18/20 15:30 Heparin Sodium,Porcine/1/2NS 25,000 unit in 250 ml IVCONT Per Protocol units/kg/hr 04/18/20 15:42 Complete Blood Count no Diff Stat PTT Heparin Drip Stat Prothrombin Time INR Stat SARS COV2 PCR INHOUSE Stat Troponin-I High Sensitivity Stat 04/18/20 16:05 ED Diet NOW 04/18/20 16:30 Heparin Sodium,Porcine 4,000 unit IVPUSH ONCE ONE 04/18/20 16:59 Transfer Order Routine 04/18/20 19:45 Atorvastatin Calcium [Lipitor] 40 mg PO BEDTIME ONE 04/18/20 22:47 PTT Heparin Drip Stat 04/19/20 ECG 12 lead EKG Stat 04/19/20 05:25 Complete Blood Count no Diff Routine Lipid Panel Routine Prothrombin Time INR Routine 04/19/20 07:57 EKG Documentation DIRECTED 04/19/20 11:01 PTT Heparin Drip Stat 04/19/20 11:45 Perflutren Lipid Microspheres [Definity] 2.2 mg IVPUSH .STK-MED ONE 04/19/20 15:03 CA echo transthorac w con Routine Laboratory Last Values WBC 5.3 X10*3/uL (4.8-10.8) 04/19/20 05:25 RBC 4.05 X10*6/uL (4.20-5.50) L 04/19/20 05:25 Hgb 13.6 g/dl (12.0-16.0) 04/19/20 05:25 Hct 40.3 % (37-47) 04/19/20 05:25 MCV 99.5 fL (80-98) H 04/19/20 05:25 MCH 33.6 pg (27.0-33.0) H 04/19/20 05:25 MCHC 33.7 g/dl (31.0-35.0) 04/19/20 05:25 RDW 11.2 % (11.0-16.0) 04/19/20 05:25 Plt Count 122 X10*3/uL (160-400) L D 04/19/20 05:25 MPV Not Reportable 04/19/20 05:25 Immature Gran % (Auto) 0.2 % (0.0-0.4) 04/18/20 12:15 Neut % (Auto) 65.2 % (45-73) 04/18/20 12:15 Lymph % (Auto) 24.4 % (20-40) 04/18/20 12:15 Boundary % (Auto) 6.2 % (2-11) 04/18/20 12:15 Eos % (Auto) 3.1 % (0-4) 04/18/20 12:15 Baso % (Auto) 0.9 % (0-2) 04/18/20 12:15 Lymph # (Auto) 1.1 X10*3/uL (1.2-4.9) L 04/18/20 12:15 Boundary # (Auto) 0.3 X10*3/uL (0.1-1.2) 04/18/20 12:15 Eos # (Auto) 0.1 X10*3/uL (0.0-0.4) 04/18/20 12:15 Baso # (Auto) 0.0 X10*3/uL (0.0-0.2) 04/18/20 12:15 Abs Immat Gran (auto) 0.01 X10*3/uL (0.00-0.03) 04/18/20 12:15 Absolute Neuts (auto) 2.9 X10*3/uL (2.0-8.3) 04/18/20 12:15 Absolute Nucleated RBC 0.000 X10*3/uL (0.0-0.012) 04/19/20 05:25 Nucleated RBC % (auto) 0.0 /100WBC (0.0-0.2) 04/19/20 05:25 PT 10.9 SEC (10.8-13.0) 04/19/20 05:25 INR 0.9 (0.9-1.1) 04/19/20 05:25 PTT (Heparin Protocol) 63.8 SEC (53-77.9) D 04/19/20 11:01 Sodium 140 mmol/L (135-145) 04/18/20 12:15 Potassium 4.4 mmol/l (3.3-5.1) 04/18/20 12:15 Chloride 103 mmol/L (96-108) 04/18/20 12:15 Carbon Dioxide 27 mmol/L (22-29) 04/18/20 12:15 Anion Gap 14 (12-20) 04/18/20 12:15 BUN 9 mg/dL (9-16) 04/18/20 12:15 Creatinine 0.69 mg/dL (0.5-1.4) 04/18/20 12:15 Estim Creat Clear Calc 83.1 04/18/20 12:15 Estimated GFR > 60 04/18/20 12:15 Random Glucose 104 mg/dL (60-115) 04/18/20 12:15 Calcium 9.4 mg/dL (8.4-10.2) 04/18/20 12:15 Total Bilirubin 0.9 mg/dL (0.0-1.0) 04/18/20 12:15 Direct Bilirubin 0.4 mg/dL (0.0-0.5) 04/18/20 12:15 AST 69 U/L (5-31) H 04/18/20 12:15 ALT 68 U/L (0-31) H 04/18/20 12:15 Alkaline Phosphatase 92 U/L (39-117) 04/18/20 12:15 Troponin I High Sens < 3.5 ng/L (<3.5-17.0) 04/18/20 15:42 Total Protein 7.1 g/dL (6.5-8.0) 04/18/20 12:15 Albumin 4.5 g/dL (3.5-5.0) 04/18/20 12:15 Triglycerides 266 mg/dL 04/19/20 05:25 Cholesterol 191 mg/dL 04/19/20 05:25 LDL Cholesterol, Calc 88 mg/dl 04/19/20 05:25 HDL Cholesterol 50 mg/dL 04/19/20 05:25 Lipase 22 U/L (8-78) 04/18/20 12:15 TSH 2.67 mIU/mL (0.32-4.0) 04/18/20 12:14 Coronavirus (PCR) NEGATIVE (Negative) 04/18/20 15:42 Discharge Plan Discharge Patient Disposition: Home, Self-Care Referrals: Taina Coleman MD [Primary Care Provider] - Discharge Medications: New lisinopril 20 mg tablet 20 mg PO DAILY Qty: 30 RF: 0 aspirin 81 mg tablet,delayed release (DR/EC) 81 mg PO DAILY Qty: 30 RF: 0 Continued metoprolol succinate 50 mg Tablet Extended Release 24 Hr 50 mg PO DAILY RF: 0 lorazepam [Ativan] 0.5 mg Tablet 0.5 mg PO BEDTIME PRN (Reason: Anxiety) RF: 0 levothyroxine 50 mcg Tablet 50 mcg PO DAILY RF: 0 multivitamin Capsule 1 cap PO DAILY RF: 0 bupropion HCl 300 mg Tablet Extended Release 24 Hr 300 mg PO QAM RF: 0 zinc 50 mg Capsule 50 mg PO DAILY RF: 0 fluoxetine [Prozac] 10 mg capsule 10 mg PO DAILY Qty: 14 RF: 1 Discontinued lisinopril 10 mg Tablet 10 mg PO DAILY RF: 0 Discharge Orders: Discharge Order (Routine); Ordered 04/19/20 Ordered By: Sid Corado Diet: advance to your usual diet Activity on Discharge: As tolerated Visit Report Forms: Patient Portal Discharge page Care Plan Goals: To continue feeling better and follow up with cardiology for further care Health Concerns: Chest pain and high blood pressure Plan of Treatment: Chest pain -- follow up with your transfusion aide. You will need to be scheduled for an outpatient stress test. Take baby aspirin 81 mg daily. Blood Pressure -- Increase your lisinopril from 10mg daily to 20mg daily.
== END 2020-04-19 16:29 | disposition home or self-care (01) | DRG 311 ==
LOC: HO.ED 18:41 → HO.IMC 18:58
PROVIDERS: Internal Medicine; Physician Assistant Medical; Admitting Provider Internal Medicine; Emergency Provider Emergency Medicine; PCP Internal Medicine; Visit Provider Family Medicine
DX: I20.0 Unstable angina (principal); F41.9 Anxiety disorder, unspecified; I10 Essential (primary) hypertension; F32.9 Major depressive disorder, single episode, unspecified; E06.3 Autoimmune thyroiditis; Z20.828 Contact with and (suspected) exposure to other viral communicable diseases; Z88.0 Allergy status to penicillin; Z79.82 Long term (current) use of aspirin; Z79.899 Other long term (current) drug therapy
CPT/HCPCS: 36415; 80048; 80061; 80076; 83690; 84443; 84484; 85025; 85027; 85610; 85730; 93005; 93306; 96365; 96366; 96375; 96376; 99285; Q9957; U0003

== ENCOUNTER 2020-04-24 08:30 | Outpatient (RCR) | payer OTHER, SELFPAY ==
--- NOTE | 2020-04-11 15:05 | PC.NURSE ---
Patient is a 59 year old female who started the PHP program today on the advise of her therapist d/t increase in depression and anxiety. Feeling helpless and hopeless and has constant fears she is going to . Reports this time of year is triggering for her as it is the anniversary of her and [id number] both of whom unexpectedly. Patient is alert and oriented x4. Cooperative and motivated for treatment. Suffering from anxiety with panic attacks. Education provided on Panic and calm breathing. Reports drinking wine 2-3 glasses a few times a week. Educated patient regarding interactions with medications and mental health issues. Patient denied SI. Stated she is fearful, I just want to make it past Thanksgiving and live . Medications reconciled with patients pharmacy and patient reports taking medication as prescribed. Completed via telephone d/t program platform.
[2020-04-11 15:12] VITALS: BMI 25.3
--- NOTE | 2020-04-11 20:25 | HO.PS.ADMBH ---
HPI Chief Complaint: depression Sources of Information: patient interviewed and chart reviewed HPI Narrative: 59 yo female, hx of PTSD and Major Depression, referred by her therapist. Pt last attended PHP in 2016. She describes several losses and life changes which have her feeling lost, depressed and questioning her purpose. She reports she after last PHP admit. was diagnosed with pancreatic cancer (similiar to her mother) and 43 days after diagnosis on . Sister's sister in law on that same day. Pt sold her home, purchased a condo, sold the condo and moved in with a new boyfriend. Anticipating having 5 grandchildren by October 2020, lost 50 lbs, and will go to her home in [place] on 04/29. All of these changes leave her feeling not the same , disoriented, lost . States my needs are covered but my head is not. Pt also reports she recently located her biological father's family. Past Psychiatric History: Psychotherapy- [facility] and Primary Care Dr. Coleman Sees Dr. Rodriguez yearly for workman's comp. Medical Evaluation Reviewed: No [facility] Medical History (Updated 04/11/20 @ 20:47 by Fabi Diaz APRN) Jonathon's thyroiditis HTN (hypertension) Surgical History History of colonoscopy History of hysteroscopy History of surgery History of tonsillectomy Diagnostics Vital Signs (24Hr): Body Mass Index 25.3 Meds/Allergies Meds Home Medications Medication Instructions Recorded Confirmed Type bupropion HCl 300 mg PO QAM 04/11/20 04/11/20 History levothyroxine 50 mcg PO DAILY 04/11/20 04/11/20 History lisinopril 10 mg PO DAILY 04/11/20 04/11/20 History lorazepam [Ativan] 0.5 mg PO DAILY PRN 04/11/20 04/11/20 History mecobalamin (vitamin B12) [B12 1,000 mcg PO DAILY 04/11/20 04/11/20 History Active] metoprolol succinate 50 mg PO DAILY 04/11/20 04/11/20 History multivitamin 1 cap PO DAILY 04/11/20 04/11/20 History zinc 50 mg PO DAILY 04/11/20 04/11/20 History Allergies Allergies Allergy/AdvReac Type Severity Reaction Status Date / Time Penicillins [PENICILLINS] Allergy Intermediate RASH Verified 04/09/20 13:53 egg Allergy Unknown stomach Verified 04/09/20 13:53 upset penicillin V Allergy Unknown rash Verified 04/09/20 13:53 cat dander Allergy Difficulty Verified 04/11/20 14:58 Breathing Mental Status Exam Mental Status Exam Patient Appearance: Well Grooomed and Appropriate Patient Orientation: Person, Place, Time and Situation Level of Consciousness: Awake, Appropriate and Alert Patient Behavior: Appropriate Mood Description: Anxious and Sad Affect Description: Flat Patient Cognition Impaired: No Ability to Follow Directions: Excellent Speech Pattern: Clear and Spontaneous Speech Memory Description: Intact Hallucinations: None Delusions: Not Present Thought Process: Intact Thought Content: positive for Intact Depressive Symptoms: Increased Anxiety, Changes in Appetite, Significant Weight Loss and Hopelessness Judgement: Good Assessment & Plan Patient educated on: diagnosis, medication risk/benefits (Dr. Rodriguez had suggested a Prozac augmentation per pt report. Will contact Dr. Rodriguez and Dr. Coleman to discuss), therapeutic strategies and medical condition Informed Consent: understands and further education needed Reason for continued partial hosp. stay Substantial Risk for: inability to function and rapid decompensation Certification I certify that partial hospital treatment is medically necessary due to the symptoms and problems resulting from the patient's mental illness and the failure to treat the patient at the partial hospital level of care would likely result in the patient requiring inpatient psychiatric care which could not be prevented at a less intensive level of care.
--- NOTE | 2020-04-12 08:52 | PC.NURSE ---
Case opened in treatment team on 04/11/2020
--- NOTE | 2020-04-15 15:19 | PC.NURSE ---
I spoke with the client to review treatment , treatment plan and discharge date. Planned dc date is 04/24/2020
--- NOTE | 2020-04-17 14:55 | HO.PHPPROGNO ---
Subjective Subjective Date of Service: 04/17/20 Reason For Visit: depression Interim History: The program is good. I am getting the hang of telehealth. Reports day 5 and doing well. Describes a funk the first few days with depressive sx, minimal attention to ADL's, but now back on track. Plans to leave for her home in [place] on 04/29. Unable to find Dr. Rodriguez's number (he is retired) but states they spoke of a Prozac trial. Discussed if she wanted to begin this here and continue trial in [place] and she is interested as she states it is uncharacteristic of her to not to attend to her ADL's when feeling depressed Medication Compliance: Yes Side effects from medications: No Attending Groups: Yes Review of Systems Review of Systems Yes all other systems are reviewed and are negative Reports behavioral changes Psychiatric: Reports anxiety, Reports behavioral changes, Reports depression, Reports hopelessness, Reports irritability and Reports other (poor attention to ADL's pt describes) Mental Status Exam Mental Status Exam Patient Orientation: Person, Place, Time and Situation Level of Consciousness: Awake, Appropriate and Alert Patient Behavior: Appropriate Mood Description: Calm Affect Description: Flat Patient Cognition Impaired: No Ability to Follow Directions: Excellent Speech Pattern: Clear, Appropriate and Spontaneous Speech Memory Description: Intact Hallucinations: None Delusions: Not Present Thought Process: Intact Thought Content: positive for Intact Depressive Symptoms: Loss of Int. in Activity, Hopelessness, Unhappiness and Increased Fatigue Judgement: Good Diagnostics Vital Signs (24Hr): Body Mass Index 25.3 Assessment & Plan Patient educated on: diagnosis, medication risk/benefits and therapeutic strategies Informed Consent: understands and further education needed Reason for contiued partial hosp. stay Substantial Risk for: inability to function and rapid decompensation Certification I certify that partial hospital treatment is medically necessary due to the symptoms and problems resulting from the patient's mental illness and the failure to treat the patient at the partial hospital level of care would likely result in the patient requiring inpatient psychiatric care which could not be prevented at a less intensive level of care. Greater than 50% of the session was spent on counseling and/or coordination of care Discharge Plan Discharge Attending provider: Teodoro Verde Additional Instructions: 04/17/20: Begin fluoxetine 10 mg daily Medications: New fluoxetine [Prozac] 10 mg capsule 10 mg PO DAILY Qty: 14 RF: 1 No Action metoprolol succinate 50 mg Tablet Extended Release 24 Hr 50 mg PO DAILY RF: 0 lorazepam [Ativan] 0.5 mg Tablet 0.5 mg PO DAILY PRN (Reason: Anxiety) RF: 0 levothyroxine 50 mcg Tablet 50 mcg PO DAILY RF: 0 lisinopril 10 mg Tablet 10 mg PO DAILY RF: 0 multivitamin Capsule 1 cap PO DAILY RF: 0 bupropion HCl 300 mg Tablet Extended Release 24 Hr 300 mg PO QAM RF: 0 zinc 50 mg Capsule 50 mg PO DAILY RF: 0 B12 Active 1,000 mcg Tablet,Chewable 1,000 mcg PO DAILY RF: 0
--- NOTE | 2020-04-19 19:05 | PM.EVENT ---
Event Note Date of Service: 04/19/20 Event Note: Message received from pt to contact her. Message left for pt.
--- NOTE | 2020-04-23 14:21 | HO.PHPPROGNO ---
Subjective Subjective Date of Service: 04/23/20 Reason For Visit: depression Interim History: Leigh Ann reports feeling improved and relieved she does not have a cardiac issue. Reviewed her medical admission, testing, consultations and that she was given heparin and had similiar sx two years ago and was cleared also. Reports an increase in Lisinopril from 10 to 20 mg daily. Discussed Prozac trial 10 mg. Reports she feels ready to begin the trial with this medical clearance. Plans to leave for [place] on 04/30/20. Will drive and looks forward to a postive effect from the Prozac as Dr. Rodriguez had suggested it when she met with him for her disability review. Medication Compliance: Yes Side effects from medications: No Attending Groups: Yes Review of Systems Review of Systems Yes all other systems are reviewed and are negative Psychiatric: Reports no additional psychiatric complaints and Reports as per [facility] Mental Status Exam Mental Status Exam Patient Orientation: Person, Place, Time and Situation Level of Consciousness: Awake and Appropriate Patient Behavior: Appropriate Mood Description: Calm Affect Description: Calm Patient Cognition Impaired: No Ability to Follow Directions: Excellent Speech Pattern: Clear and Appropriate Memory Description: Intact Hallucinations: None Delusions: Not Present Thought Process: Intact and Goal Oriented Thought Content: positive for Intact Judgement: Good Diagnostics Vital Signs (24Hr): Body Mass Index 25.3 EKG EKG Comment: Received cardiac clearance after a brief admission. Lisinopril increased to 20 mg by medical team. Assessment & Plan Patient educated on: medication risk/benefits and therapeutic strategies Informed Consent: understands and further education needed Reason for contiued partial hosp. stay Substantial Risk for: inability to function and rapid decompensation Certification I certify that partial hospital treatment is medically necessary due to the symptoms and problems resulting from the patient's mental illness and the failure to treat the patient at the partial hospital level of care would likely result in the patient requiring inpatient psychiatric care which could not be prevented at a less intensive level of care. Greater than 50% of the session was spent on counseling and/or coordination of care Discharge Plan Discharge Attending provider: Teodoro Verde Additional Instructions: 04/17/20: Begin fluoxetine 10 mg daily. 04/23/20: Begin fluoxeting 10 mg daily as pt did not initiate the dose on 04/17/20 due to cardiac symptoms. Medications: New fluoxetine [Prozac] 10 mg capsule 10 mg PO DAILY Qty: 14 RF: 1 No Action metoprolol succinate 50 mg Tablet Extended Release 24 Hr 50 mg PO DAILY RF: 0 lorazepam [Ativan] 0.5 mg Tablet 0.5 mg PO BEDTIME PRN (Reason: Anxiety) RF: 0 levothyroxine 50 mcg Tablet 50 mcg PO DAILY RF: 0 multivitamin Capsule 1 cap PO DAILY RF: 0 bupropion HCl 300 mg Tablet Extended Release 24 Hr 300 mg PO QAM RF: 0 zinc 50 mg Capsule 50 mg PO DAILY RF: 0 lisinopril 20 mg tablet 20 mg PO DAILY Qty: 30 RF: 0 aspirin 81 mg tablet,delayed release (DR/EC) 81 mg PO DAILY Qty: 30 RF: 0
== END 2020-04-24 23:55 | disposition home or self-care (01) ==
LOC: HO.PHPA 08:30
PROVIDERS: Visit Provider Psychiatry & Neurology Psychiatry
DX: F32.9 Major depressive disorder, single episode, unspecified (principal)
CPT/HCPCS: 90792; 90853; 99213

== ENCOUNTER 2020-09-12 12:33 | Outpatient (REF) | payer OTHER, SELFPAY ==
--- NOTE | ~2020-09-12 | XR_ITS ---
EXAMINATION: XR CHEST CLINICAL INFORMATION: Exposure to Covid 19. COMPARISON: 05/26/2019 TECHNIQUE: 2 views of the chest were obtained. FINDINGS: The lungs are well expanded. There is no focal consolidation, edema, or effusion. No pneumothorax. The cardiomediastinal silhouette is within normal limits. No acute osseous abnormality. XR/XR chest 2V IMPRESSION: Clear lungs.
== END 2020-09-12 12:34 | disposition home or self-care (01) ==
LOC: HO.HMGCX 12:33
PROVIDERS: PCP Internal Medicine; Visit Provider Hospitalist
DX: Z20.822 Contact with and (suspected) exposure to COVID-19 (principal)
CPT/HCPCS: 71046; U0003; U0005

== ENCOUNTER 2021-04-23 10:45 | Outpatient (RCR) | payer OTHER, SELFPAY ==
[2021-04-14 13:18] VITALS: BMI 25.4
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
--- NOTE | 2021-04-14 14:40 | PC.NURSE ---
Addendum entered by Kelsie Oglesby [facility] 05/02/21 08:41: Case opened in treatment team Original Note: C
--- NOTE | 2021-04-23 17:16 | HO.PHPPROGNO ---
Subjective Subjective Date of Service: 04/23/21 Reason For Visit: Anxiety, Depression, PTSD Guardianship: No Medical Problems Affecting Mental Status: No Interim History: Leigh Ann reports that she feels her mood is stable at this time. She states that she is tired, exhausted. She feels at this point that due to her continuing court case, her individual therapy appointments, couples therapy appointments, and participating in this partial program is too much for her at this time. She states that she believes PHP would of been helpful a month ago, but that currently it is just too much for her schedule. She reports that she wishes to discharge today, and does not plan to return. She denies any thoughts of harm to self or others, no safety concern at this time. She reports she plans to go to her home in [place] for several weeks, as she needs to rest. Medication Compliance: Yes Side effects from medications: No Attending Groups: Yes Review of Systems Acute medical concerns: No Medical Review of Systems: unchanged Review of Systems Review of Systems Yes all other systems are reviewed and are negative Mental Status Exam Mental Status Exam Narrative: Well-developed, well-nourished female, in NAD. No involuntary movements noted, motor activity calm, posture within normal limits. Ambulation not observed. Patient Appearance: Well Grooomed, Fatigued and Appropriate Patient Orientation: Person, Place, Time and Situation Level of Consciousness: Awake, Appropriate and Alert Patient Behavior: Appropriate, Cooperative and Good Eye Contact Mood Description: Calm and Appropriate Affect Description: Appropriate, Depressed and Anxious Patient Cognition Impaired: No Ability to Follow Directions: Excellent Speech Pattern: Clear, Appropriate, Spontaneous Speech and Coherent Memory Description: Intact Hallucinations: None Delusions: Not Present Thought Process: Intact, Goal Oriented and Linear Thought Content: positive for Intact, positive for Goal Oriented and positive for Linear Depressive Symptoms: Loss of Energy Judgement: Good Diagnostics Vital Signs (24Hr): Body Mass Index 25.4 Assessment & Plan Assessment & Plan (1) Depression, major, recurrent, moderate: Status: Acute Code(s): F33.1 - Major depressive disorder, recurrent, moderate Assessment and Plan: Client reports that she feels her mood has stabilized. She denies any thought of harm to self or others. She states she is taking medications as prescribed. She states that she wishes to be discharged today, as she feels it is physically exhausting to participate in this program simultaneously with individual therapy, couples therapy, and dealing with her ongoing worker's comp case. She states that she appreciates the groups that she has participated in, but now feels ready for discharge. Assessment and Plan: 1. Client plans to discharge today. She will follow up with her outpatient providers going forward. No safety concern at this time. Patient educated on: diagnosis, medication risk/benefits and therapeutic strategies Informed Consent: understands Reason for contiued partial hosp. stay Substantial Risk for: stable for discharge Certification I certify that partial hospital treatment is medically necessary due to the symptoms and problems resulting from the patient's mental illness and the failure to treat the patient at the partial hospital level of care would likely result in the patient requiring inpatient psychiatric care which could not be prevented at a less intensive level of care. I spent minutes with the patient and/or on the patient floor today, greater than?50% of which was spent counseling/coordinating care. Discharge Plan Discharge Attending provider: Castillo Perdomo Primary Care Provider: Taina Coleman Medications: No Action levothyroxine 50 mcg tablet 50 mcg PO DAILY 90 Days Qty: 90 RF: 1 bupropion HCl 300 mg tablet extended release 24 hr 300 mg PO QAM Qty: 90 RF: 0 metoprolol succinate 50 mg tablet extended release 24 hr 50 mg PO DAILY Qty: 90 RF: 0 lisinopril 20 mg tablet 20 mg PO DAILY 90 Days Qty: 90 RF: 0 multivitamin Capsule 1 cap PO DAILY RF: 0 zinc 50 mg Capsule 50 mg PO DAILY RF: 0 aspirin 81 mg tablet,delayed release (DR/EC) 81 mg PO DAILY Qty: 30 RF: 0 lorazepam [Ativan] 0.5 mg tablet 0.5 mg PO DAILY PRN (Reason: Anxiety) RF: 0 Referrals: Taina Coleman MD [Primary Care Provider] - 1 Week Telehealth Telehealth Location of provider rendering services: practice address Location of patient: address on file Patient Identification confirmed using: Name, : Yes Telehealth method: video Patient verbally consented to treatment: Yes Patient verbally consented to billing insurance company: Yes Patient informed of any privacy concerns related to visit: Yes Time spent with patient (mins): 15
== END 2021-04-24 07:18 | disposition home or self-care (01) ==
LOC: HO.PHPA 10:45
PROVIDERS: PCP Internal Medicine; Visit Provider Psychiatry & Neurology Psychiatry
DX: F33.1 Major depressive disorder, recurrent, moderate (principal); F43.10 Post-traumatic stress disorder, unspecified; Z79.899 Other long term (current) drug therapy
CPT/HCPCS: 90791; 90853

== ENCOUNTER 2022-05-06 10:52 | Outpatient (REF) | payer OTHER, SELFPAY ==
[2022-05-06 13:55] LABS: MANUAL DIFF FLAG NO
[2022-05-06 14:08] LABS: Basophils Absolute Auto 0.1 X10*3/uL (0.0-0.2); Basophils Percent Auto 1.6 % (0-2); Eosinophils Absolute Auto 0.1 X10*3/uL (0.0-0.4); Eosinophils Percent Auto 2.6 % (0-4); Hematocrit 41.2 % (37.0-47.0); Hemoglobin 13.6 g/dl (12.0-16.0); Imm Gran Abs Auto 0.01 X10*3/uL (0.00-0.03); Imm Gran Pct Auto 0.3 % (0.0-0.4); Lymphocytes Absolute Auto 1.4 X10*3/uL (1.2-4.9); Lymphocytes Percent Auto 36.4 % (20-40); Mean Corpuscular Hemoglobin 34.1 pg (27.0-33.0); Mean Corpuscular Volume 103.3 fL (80.0-98.0); Mean Platelet Volume 10.7 fL (9.4-12.3); Monocytes Absolute Auto 0.3 X10*3/uL (0.1-1.2); Monocytes Percent Auto 7.9 % (2-11); Neutrophils Absolute Auto 1.9 x10*3/uL (2.0-8.3); Neutrophils Percent Auto 51.2 % (45-73); Platelet Count 197 X10*3/uL (160-400); Red Blood Count 3.99 X10*6/uL (4.20-5.50); Red Cell Distribution Width 11.3 % (11.0-16.0); White Blood Count 3.8 X10*3/uL (4.8-10.8)
[2022-05-06 14:10] LABS: Alanine Aminotransferase 88 U/L (0-31); Albumin Level 4.2 g/dL (3.5-5.0); Alkaline Phosphatase 165 U/L (39-117); Anion Gap 16 (12-20); Aspartate Amino Transferase 207 U/L (5-31); Bilirubin Total 1.3 mg/dL (0.0-1.0); Blood Urea Nitrogen 13 mg/dL (9-16); Calcium 9.6 mg/dL (8.4-10.2); Carbon Dioxide 25 mmol/L (22-29); Chloride 103 mmol/L (96-108); Estimated Glomerular Filt Rate > 60; Glucose Random 91 mg/dL (60-115); Potassium 4.3 mmol/L (3.3-5.1); Sodium 140 mmol/L (135-145); Total Protein 6.8 g/dL (6.5-8.0)
[2022-05-08 13:06] LABS: LDL Cholesterol Direct 123 mg/dL (<100)
== END 2022-05-06 10:53 | disposition home or self-care (01) ==
LOC: HO.HMGCLDS 10:52
PROVIDERS: PCP Internal Medicine; Visit Provider Internal Medicine
DX: D69.6 Thrombocytopenia, unspecified (principal); E03.9 Hypothyroidism, unspecified; F33.9 Major depressive disorder, recurrent, unspecified; F41.1 Generalized anxiety disorder; K21.9 Gastro-esophageal reflux disease without esophagitis; R79.89 Other specified abnormal findings of blood chemistry; I10 Essential (primary) hypertension
CPT/HCPCS: 36415; 80053; 83721; 84443; 85025

== ENCOUNTER 2022-05-12 11:51 | Outpatient (REF) | payer OTHER, SELFPAY ==
[2022-05-12 14:04] LABS: MANUAL DIFF FLAG NO
[2022-05-12 14:12] LABS: Basophils Percent Auto 0.9 % (0-2); Eosinophils Absolute Auto 0.1 X10*3/uL (0.0-0.4); Eosinophils Percent Auto 2.7 % (0-4); Hematocrit 38.8 % (37.0-47.0); Hemoglobin 13.1 g/dl (12.0-16.0); Imm Gran Abs Auto 0.01 X10*3/uL (0.00-0.03); Imm Gran Pct Auto 0.3 % (0.0-0.4); Lymphocytes Absolute Auto 1.4 X10*3/uL (1.2-4.9); Lymphocytes Percent Auto 41.9 % (20-40); Mean Corpuscular HGB Conc 33.8 g/dl (31.0-35.0); Mean Corpuscular Hemoglobin 34.7 pg (27.0-33.0); Mean Corpuscular Volume 102.9 fL (80.0-98.0); Mean Platelet Volume 10.8 fL (9.4-12.3); Monocytes Absolute Auto 0.3 X10*3/uL (0.1-1.2); Monocytes Percent Auto 8.7 % (2-11); Neutrophils Absolute Auto 1.5 x10*3/uL (2.0-8.3); Neutrophils Percent Auto 45.5 % (45-73); Platelet Count 181 X10*3/uL (160-400); Red Blood Count 3.77 X10*6/uL (4.20-5.50); Red Cell Distribution Width 11.3 % (11.0-16.0); White Blood Count 3.3 X10*3/uL (4.8-10.8)
[2022-05-12 14:57] LABS: Alanine Aminotransferase 99 U/L (0-31); Albumin Level 4.1 g/dL (3.5-5.0); Alkaline Phosphatase 125 U/L (39-117); Anion Gap 14 (12-20); Aspartate Amino Transferase 207 U/L (5-31); Bilirubin Total 1.3 mg/dL (0.0-1.0); Blood Urea Nitrogen 7 mg/dL (9-16); Calcium 9.3 mg/dL (8.4-10.2); Carbon Dioxide 24 mmol/L (22-29); Chloride 101 mmol/L (96-108); Estimated Glomerular Filt Rate > 60; Glucose Random 88 mg/dL (60-115); Potassium 4.1 mmol/L (3.3-5.1); Sodium 135 mmol/L (135-145); TSH reflex Free T4 3.71 uIU/mL (0.32-4.0); Total Protein 6.4 g/dL (6.5-8.0)
[2022-05-13 09:02] LABS: HBS Num1 0.63 mIU/mL (0-7.99); HBc Num1 0.07 S/CO (0.00-0.79); HBsAGNum1 0.24 S/CO (0.00-0.99); Hepatitis B Core Antibody Nonreactive (Nonreactive); Hepatitis B Surface Antigen Negative (Negative); ~HepC Num1 0.12 S/CO (0.00-0.79); ~Hepatitis A Antibody IgM Nonreactive (Nonreactive); ~Hepatitis B Surface Antibody NONREACTIVE (Nonreactive); ~Hepatitis C Antibody Nonreactive (Nonreactive)
[2022-05-14 06:48] LABS: LDL Cholesterol Direct 115 mg/dL (<100)
== END 2022-05-12 11:52 | disposition home or self-care (01) ==
LOC: HO.HMGCLDS 11:51
PROVIDERS: PCP Internal Medicine; Visit Provider Internal Medicine
DX: R79.89 Other specified abnormal findings of blood chemistry (principal); E03.9 Hypothyroidism, unspecified; F33.9 Major depressive disorder, recurrent, unspecified; F41.1 Generalized anxiety disorder; I10 Essential (primary) hypertension; K21.9 Gastro-esophageal reflux disease without esophagitis; D69.6 Thrombocytopenia, unspecified
CPT/HCPCS: 36415; 80053; 83721; 84443; 85025; 86704; 86706; 86709; 86803; 87340

== ENCOUNTER 2022-09-21 18:16 | Emergency (ER) | payer OTHER, SELFPAY ==
[2022-09-21 18:25] VITALS: PULSE 91; RESP 18; BMI 22.6
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
[2022-09-21] MEDS: LORazepam 0.5 MG TABLET PO (18:41)
== END 2022-09-21 19:20 | disposition home or self-care (01) ==
PROVIDERS: Emergency Provider Emergency Medicine; PCP Internal Medicine
DX: F43.9 Reaction to severe stress, unspecified (principal); F10.129 Alcohol abuse with intoxication, unspecified; Y90.9 Presence of alcohol in blood, level not specified; Z87.891 Personal history of nicotine dependence; Z79.899 Other long term (current) drug therapy
CPT/HCPCS: 99283

== ENCOUNTER 2023-02-23 09:16 | Outpatient (AMB) | payer OTHER, SELFPAY ==
--- NOTE | 2023-02-23 10:33 | A.OFFPC_ITS ---
Intake Visit Reasons: Follow Up~ Allergies Penicillins [PENICILLINS] Allergy (Intermediate, Verified 02/23/23 11:21) RASH egg Allergy (Unknown, Verified 02/23/23 11:21) stomach upset penicillin V Allergy (Unknown, Verified 02/23/23 11:21) rash cat dander Allergy (Verified 02/23/23 11:21) Difficulty Breathing Medication List - Last Reconciled 02/23/23 by Taina Coleman MD albuterol sulfate 90 mcg/actuation 1 inh inhalation QID PRN aspirin 81 mg PO DAILY bupropion HCl 300 mg PO QAM 30 days escitalopram oxalate 10 mg PO DAILY levothyroxine 50 mcg PO DAILY 90 days lisinopril 20 mg PO DAILY 90 days lorazepam (Ativan) 0.5 mg PO DAILY PRN 30 days metoprolol succinate ER 50 mg PO DAILY multivitamin 1 cap PO DAILY zinc 50 mg PO DAILY Tobacco use date assessed: 02/23/23 HPI Follow Up~ HPI Details Patient is 62-year-old female who was last seen April of last year, after that patient could not come in for follow-up appointment She recently had a break-up and had to move to [place]. We have discussed today the need to be monitoring side effect of the medication, without that I will not be able to continue prescribing it. Since she has moved to [place] I would recommend that she get a new primary care nearby. I have sent another month of medications after that patient need to get it from local provider in [place]. [facility] Medical History Chronic GERD Hypothyroidism Depression, major, recurrent Anxiety, generalized Thrombocytopenia LFT elevation Depression Anxiety Jonathon's thyroiditis HTN (hypertension) Surgical History History of surgery History of hysteroscopy History of colonoscopy History of tonsillectomy Family History Father No problems noted. Mother No problems noted. Maternal Grandmother Breast cancer Brother Arthritis Brother No problems noted. Daughter No problems noted. Son No problems noted. Son No problems noted. Son No problems noted. Sister Congenital bicuspid aortic valve Social History Household Members: Significant Other Housing: House Do you presently have visiting nurse or other home services: No Alcohol intake: current Alcohol intake frequency: 0-2 drinks per day Alcohol type: wine Patient Tobacco Use Status: Former Tobacco user Quit Date: quit 30 years ago e-Cigarette/Vaping Use: Never Used Second Hand Smoke Exposure: No service: No Current occupational status: unemployed Cognitive needs: No Hearing needs: No Vision needs: No Questionnaire Thrive Questionnaire Date Thrive assessed: 11/19/21 GAGE-7 AMB Questionnaire GAGE-7 Date GAGE - 7 assessed: 11/19/21 Source: Developed by Drs. Pawel Stewart, Mary Lowe, Dani Segura and colleagues, with an educational dylon from [employer]. Review of Systems Const Denies chills and Denies fever(s) ENT Denies epistaxis and Denies nasal discharge Card Denies chest pain Resp Denies chest congestion, Denies cough and Denies hemoptysis GI Denies diarrhea and Denies nausea Skin/Breast Denies rash Neuro Reports no additional complaints Psych Reports no additional complaints Endo Reports no additional complaints Physical exam (Primary Care) Tobacco/Smoking Status: Tobacco use Status Tobacco use date assessed 02/23/23 02/23/23 11:23 Patient Tobacco Use Status Former Tobacco user 02/23/23 10:33 e-Cigarette/Vaping Use Never Used 02/23/23 10:33 Thrive Assessment: Date of Thrive Assessment Date Thrive assessed 11/19/21 02/23/23 10:33 Telehealth Telehealth Location of provider rendering services: practice address Location of patient: address on file Patient Identification confirmed using: Name, : Yes Telehealth method: voice only Patient verbally consented to treatment: Yes Patient verbally consented to billing insurance company: Yes Patient informed of any privacy concerns related to visit: Yes Minutes spent on Phone/Video with Pt.: 17 Assessment and Plan Assessment & Plan (1) Anxiety, generalized: Code(s): F41.1 - Generalized anxiety disorder (2) Depression, major, recurrent: Code(s): F33.9 - Major depressive disorder, recurrent, unspecified Qualifiers: Active/Remission status: currently active Major depression episode severity: moderate Qualified Code(s): F33.1 - Major depressive disorder, recurrent, moderate (3) Hypothyroidism: Code(s): E03.9 - Hypothyroidism, unspecified Qualifiers: Hypothyroidism type: other Qualified Code(s): E03.8 - Other specified hypothyroidism (4) Chronic GERD: Code(s): K21.9 - Gastro-esophageal reflux disease without esophagitis (5) LFT elevation: Code(s): R79.89 - Other specified abnormal findings of blood chemistry Plan Patient is 62-year-old female who was last seen April of last year, after that patient could not come in for follow-up appointment She recently had a break-up and had to move to [place]. Patient have a history of major depression and anxiety currently she is seeing a psych med prescriber and is taking medications through them. Hypothyroidism: She is to continue levothyroxine 50 mcg Blood pressure management is with lisinopril 20 mg and metoprolol 50 mg We have discussed today the need to be monitoring side effect of the medication, without that I will not be able to continue prescribing it. Since she has moved to [place] I would recommend that she get a new primary care nearby. I have sent another month of medications after that patient need to get it from local provider in [place]. Medications: Changed From lisinopril 20 mg PO DAILY 90 days 90 tabs 0RF To lisinopril 20 mg PO DAILY 30 days 30 tabs 0RF From levothyroxine 50 mcg PO DAILY 90 days 90 tabs 0RF To levothyroxine 50 mcg PO DAILY 30 days 30 tabs 0RF Coding Level of Care Code Tele Est Pt Level 3 (60734) Diagnoses Anxiety, generalized F41.1 Moderate episode of recurrent major depressive disorder F33.1 Active/Remission status: currently active Major depression episode severity: moderate Other specified hypothyroidism E03.8 Hypothyroidism type: other Chronic GERD K21.9 LFT elevation R79.89
== END 2023-02-23 14:45 | disposition home or self-care (01) ==
LOC: HO.HMGC 09:16
PROVIDERS: PCP Internal Medicine; Visit Provider Internal Medicine
DX: K21.9 Gastro-esophageal reflux disease without esophagitis (principal); F33.1 Major depressive disorder, recurrent, moderate; E03.8 Other specified hypothyroidism; F41.1 Generalized anxiety disorder; R79.89 Other specified abnormal findings of blood chemistry
CPT/HCPCS: 99442

== ENCOUNTER 2024-06-08 18:42 | Emergency (ER) | payer OTHER, SELFPAY ==
--- NOTE | 2024-06-08 18:47 | ED.GENADULT ---
HPI - General Adult General Chief complaint: Abdominal Pain Stated complaint: abd pain/ascites, lower back pain Time Seen by Provider: 06/09/24 00:12 Source: patient Mode of arrival: ambulatory Limitations: no limitations History of Present Illness ED Provider: DR. Handley HPI narrative: 64-year-old female history of ascites and liver cirrhosis secondary to alcohol use presented today for evaluation of feeling her abdomen is bloating, patient is from [place] here in [place] to visit her family patient had paracentesis done a week ago before she traveled now she feels she needs more paracentesis , no abdominal pain, no fever, no chills, no fever. Patient admitted to drinking alcohol last night. Patient is not taking anticoagulation. Related Data Home Medications ?Medication ?Instructions ?Recorded ?Confirmed multivitamin 1 cap PO DAILY 04/11/20 02/23/23 zinc 50 mg capsule 50 mg PO DAILY 04/11/20 02/23/23 escitalopram oxalate 10 mg tablet 10 mg PO DAILY 05/06/22 02/23/23 Previous Rx's ?Medication ?Instructions ?Recorded aspirin 81 mg tablet,delayed 81 mg PO DAILY #30 tabs 04/19/20 release albuterol sulfate 90 mcg/actuation 1 inh inhalation QID PRN shortness 09/02/21 aerosol inhaler of breath or wheezing #6.7 grams bupropion HCl 300 mg 24 hr tablet, 300 mg PO QAM 30 days #30 tabs 10/03/21 extended release lorazepam 0.5 mg tablet (Ativan) 0.5 mg PO DAILY PRN Anxiety 30 10/03/21 days #30 tabs metoprolol succinate 50 mg 50 mg PO DAILY #90 tabs 02/19/23 tablet,extended release 24 hr levothyroxine 50 mcg tablet 50 mcg PO DAILY 30 days #30 tabs 02/23/23 lisinopril 20 mg tablet 20 mg PO DAILY 30 days #30 tabs 02/23/23 Allergies Allergy/AdvReac Type Severity Reaction Status Date / Time Penicillins [PENICILLINS] Allergy Intermediate RASH Verified 06/08/24 18:51 egg Allergy Unknown stomach Verified 06/08/24 18:51 upset penicillin V Allergy Unknown rash Verified 06/08/24 18:51 cat dander Allergy Difficulty Verified 06/08/24 18:51 Breathing Review of Systems Review of Systems: All other systems are reviewed and are negative Constitutional: Reports as per HPI and Reports no additional constitutional complaints Eyes: Reports as per HPI and Reports no additional eye complaints Reports system reviewed and no additional complaints, except as documented Cardiovascular: Reports as per HPI and Reports no additional cardiovascular complaints Respiratory: Reports as per HPI and Reports no additional respiratory complaints Gastrointestinal: Reports as per HPI and Reports no additional gastrointestinal complaints Genitourinary: Reports no additional female genitourinary complaints Musculoskeletal: Reports no additional musculoskeletal complaints Skin/Breast: Reports system reviewed and no additional complaints, except as docu Psychiatric: Reports no additional psychiatric complaints Endocrine: Reports no additional endocrine complaints Hematologic/Lymphatic: Reports no additional hematologic/lymphatic complaints Allergic/Immunologic: Reports no additional allergic/immunologic complaints Reports system reviewed and no additional complaints, except as documented and Reports Abnormal speech present [facility] Past Medical History Medical History Chronic GERD Hypothyroidism Depression, major, recurrent Anxiety, generalized Thrombocytopenia LFT elevation Depression Anxiety Jonathon's thyroiditis HTN (hypertension) Surgical History History of surgery History of hysteroscopy History of colonoscopy History of tonsillectomy Family History Family History Father No problems noted. Mother No problems noted. Maternal Grandmother Breast cancer Brother Arthritis Brother No problems noted. Daughter No problems noted. Son No problems noted. Son No problems noted. Son No problems noted. Sister Congenital bicuspid aortic valve Social History Social History Household Members: Significant Other Housing: House Do you presently have visiting nurse or other home services: No Alcohol intake: current Alcohol intake frequency: holidays/special occasions only Alcohol type: wine Comment: PT REPORTS LESS ANXIOUS Patient Tobacco Use Status: Former Tobacco user Smoked in Last 30 Days: No e-Cigarette/Vaping Use: Never Used Second Hand Smoke Exposure: No Use of substances other than those prescribed or required for medical reasons: No Advance Directives: No Patient : No service: No Current occupational status: unemployed Cognitive needs: No Hearing needs: No Vision needs: No Physical Exam ED Vital Signs: Vital Signs - 24 hr 06/08/24 18:49 06/08/24 23:55 06/09/24 00:49 Temperature 98.3 F 98 F 98.2 F Pulse Rate 90 85 83 Respiratory Rate 18 16 16 Blood Pressure 159/79 H 153/88 H 149/86 H Pulse Oximetry 97 97 98 Oxygen Delivery Method Room Air Room Air Room Air 06/09/24 00:56 06/09/24 01:34 06/09/24 03:22 Temperature 98.5 F 98.9 F 98.5 F Pulse Rate 83 89 93 Respiratory Rate 16 15 16 Blood Pressure 131/80 144/79 H 115/69 Pulse Oximetry 97 97 97 Oxygen Delivery Method Room Air Room Air Room Air BMI result Body Mass Index 24.8 Vital signs have been reviewed and appear to be correct. Blood pressure elevated. Heart rate normal. Respiratory rate normal. Temperature normal. Oxygen saturation normal. Appearance: Alert. Oriented X3. No acute distress. Head: Normal external exam. Normocephalic. Atraumatic. No Rosenbaum signs noted. No raccoon eyes noted Eyes: PERRLA. EOMI. Conjunctiva and sclera normal. Eyelids normal. ENT: TM's Normal. Pharynx normal. Uvula midline. Moist mucous membranes. No trismus noted. No drooling noted. No muffled voice noted. Neck: Normal inspection. Neck supple. FROM. No adenopathy. Thyroid Normal. No meningeal signs. No neck mass noted. CVS: Normal heart rate and rhythm. Heart sound normal. No murmurs noted. Pulses normal throughout. Respiratory: No respiratory distress. Painless inspiration. Breath sounds normal. No wheezes/rales/rhonchi noted. Chest nontender. No accessory muscle usage noted or decreased air movement noted. Abdomen: Soft , distended, Bowel sounds normal in all 4 quadrants. No distention noted. No organomegaly noted. No visible injury noted. Back: No CVA tenderness. Full range of motion noted. Skin: Skin warm and dry. Normal skin color. Normal skin turgor. No rashes/lesions/lacerations noted. Extremities: No lower extremity edema. Extremities exhibit normal range of motion. Extremities nontender. Neuro: Oriented X 3. Cranial nerve exam: II-XII are grossly intact No motor deficit. No sensory deficit. Reflexes normal. Course Course Course Narrative: RME, this is a rapid medical exam performed by Tobias Amos please refer to primary provider for complete H&P- 64 year old female presents for evaluation of lower abdominal pain. She reports a history of fatty liver, ascites. She reports she last had a paracentesis 1 week ago. She reports abdominal distention and severe pain. Plan for labs, ammonia. Patient reports that she usually gets around 3-4 L removed during paracentesis. Reevaluation(s) Reevaluation #1: Patient had peritoneal paracentesis 3 L of fluid was removed and sent for further analysis, patient feels better, able to breathe better. Time: 05:00 Medical Decision Making Differential Diagnosis Differential Diagnoses: The differential diagnosis associated with the presentation includes (Ascites, SBP, electrolyte derangement, severe anemia, UTI.) Admission/Observation Consideration of admission/observation: Escalation of care including admission/observation considered Lab Data MDM Lab Attestation statement: I reviewed the patient's lab results. 06/08/24 19:09 06/08/24 19:09 Labs: Lab Results 06/08/24 06/08/24 06/09/24 Range/Units 19:09 21:13 00:32 WBC 7.3 (4.8-10.8) X10*3/uL RBC 4.08 L (4.20-5.50) X10*6/uL Hgb 13.8 (12.0-16.0) g/dl Hct 40.7 (37.0-47.0) % MCV 99.8 H (80.0-98.0) fL MCH 33.8 H (27.0-33.0) pg MCHC 33.9 (31.0-35.0) g/dl RDW 14.2 (11.0-16.0) % Plt Count 111 L D (160-400) X10*3/uL MPV 10.4 (9.4-12.3) fL Immature Gran % (Auto) 0.4 (0.0-0.4) % Neut % (Auto) 77.7 H (45-73) % Lymph % (Auto) 14.3 L (20-40) % [place] % (Auto) 4.9 (2-11) % Eos % (Auto) 1.5 (0-4) % Baso % (Auto) 1.2 (0-2) % Lymph # (Auto) 1.0 L (1.2-4.9) X10*3/uL [place] # (Auto) 0.4 (0.1-1.2) X10*3/uL Eos # (Auto) 0.1 (0.0-0.4) X10*3/uL Baso # (Auto) 0.1 (0.0-0.2) X10*3/uL Abs Immat Gran (auto) 0.03 (0.00-0.03) X10*3/uL Absolute Neuts (auto) 5.7 (2.0-8.3) x10*3/uL Absolute Nucleated RBC 0.000 (0.0-0.012) X10*3/uL Nucleated RBC % (auto) 0.0 (0.0-0.2) /100WBC PT 16.9 H (10.9-12.4) SEC INR 1.4 H (0.9-1.1) Sodium 138 (135-145) mmol/L Potassium 3.0 L (3.3-5.1) mmol/L Chloride 101 (96-108) mmol/L Carbon Dioxide 28 (22-29) mmol/L Anion Gap 12 (12-20) BUN 7 L (9-16) mg/dL Creatinine 0.59 (0.5-1.4) mg/dL Estim Creat Clear Calc 87.8 Estimated GFR > 60 Random Glucose 100 (60-115) mg/dL Calcium 9.1 (8.4-10.2) mg/dL Total Bilirubin 5.2 H (0.0-1.0) mg/dL AST 117 H (5-31) U/L ALT 29 (0-31) U/L Alkaline Phosphatase 281 H (39-117) U/L Ammonia 62 H (13-55) umol/L Total Protein 7.6 (6.5-8.0) g/dL Albumin 3.5 (3.5-5.0) g/dL Lipase 38 (8-78) U/L Urine Color Dark Yellow Urine Appearance Clear Urine pH 6.0 (5.0-9.0) Ur Specific [place] 1.020 (1.005-1.025) Urine Protein Negative (Neg-Trace) mg/dL Urine Glucose (UA) Negative (Negative) mg/dL Urine Ketones Trace (Negative) mg/dL Urine Blood Negative (Negative) Urine Nitrite Negative (Negative) Ur Leukocyte Esterase Trace H (Negative) Urine RBC 0-2 (0-2) /HPF Urine WBC 0-5 (0-5) /HPF Ur Squamous Epith Cells 6-10 (0-2) /HPF Urine Bacteria None Seen (None Seen) Hyaline Casts 0-2 (0-2) /LPF Peritoneal WBC X10*3/uL Peritoneal RBC X10*6/uL [place] Neutrophils % Periton Lymphocytes % Peritoneal Monocytes % Peritoneal Other Cells % 06/09/24 Range/Units 00:56 WBC (4.8-10.8) X10*3/uL RBC (4.20-5.50) X10*6/uL Hgb (12.0-16.0) g/dl Hct (37.0-47.0) % MCV (80.0-98.0) fL MCH (27.0-33.0) pg MCHC (31.0-35.0) g/dl RDW (11.0-16.0) % Plt Count (160-400) X10*3/uL MPV (9.4-12.3) fL Immature Gran % (Auto) (0.0-0.4) % Neut % (Auto) (45-73) % Lymph % (Auto) (20-40) % [place] % (Auto) (2-11) % Eos % (Auto) (0-4) % Baso % (Auto) (0-2) % Lymph # (Auto) (1.2-4.9) X10*3/uL [place] # (Auto) (0.1-1.2) X10*3/uL Eos # (Auto) (0.0-0.4) X10*3/uL Baso # (Auto) (0.0-0.2) X10*3/uL Abs Immat Gran (auto) (0.00-0.03) X10*3/uL Absolute Neuts (auto) (2.0-8.3) x10*3/uL Absolute Nucleated RBC (0.0-0.012) X10*3/uL Nucleated RBC % (auto) (0.0-0.2) /100WBC PT (10.9-12.4) SEC INR (0.9-1.1) Sodium (135-145) mmol/L Potassium (3.3-5.1) mmol/L Chloride (96-108) mmol/L Carbon Dioxide (22-29) mmol/L Anion Gap (12-20) BUN (9-16) mg/dL Creatinine (0.5-1.4) mg/dL Estim Creat Clear Calc Estimated GFR Random Glucose (60-115) mg/dL Calcium (8.4-10.2) mg/dL Total Bilirubin (0.0-1.0) mg/dL AST (5-31) U/L ALT (0-31) U/L Alkaline Phosphatase (39-117) U/L Ammonia (13-55) umol/L Total Protein (6.5-8.0) g/dL Albumin (3.5-5.0) g/dL Lipase (8-78) U/L Urine Color Urine Appearance Urine pH (5.0-9.0) Ur Specific [place] (1.005-1.025) Urine Protein (Neg-Trace) mg/dL Urine Glucose (UA) (Negative) mg/dL Urine Ketones (Negative) mg/dL Urine Blood (Negative) Urine Nitrite (Negative) Ur Leukocyte Esterase (Negative) Urine RBC (0-2) /HPF Urine WBC (0-5) /HPF Ur Squamous Epith Cells (0-2) /HPF Urine Bacteria (None Seen) Hyaline Casts (0-2) /LPF Peritoneal WBC 0.080 X10*3/uL Peritoneal RBC 0.003 X10*6/uL [place] Neutrophils 1 % [place] Lymphocytes 18 % Peritoneal Monocytes 11 % Peritoneal Other Cells 70 % Discharge Plan Discharge Clinical Impression: Abdominal ascites, Status post abdominal paracentesis Patient Disposition: Still a Patient Instructions: Ascites (ED) Prescriptions: No Action lorazepam [Ativan] 0.5 mg tablet 0.5 mg PO DAILY PRN (Reason: Anxiety) 30 Days Qty: 30 0RF bupropion HCl 300 mg tablet extended release 24 hr 300 mg PO QAM 30 Days Qty: 30 0RF metoprolol succinate 50 mg tablet extended release 24 hr 50 mg PO DAILY Qty: 90 0RF multivitamin Capsule 1 cap PO DAILY Rx Instructions: Patient takes OTC zinc 50 mg Capsule 50 mg PO DAILY Patient Comments: Patient takes OTC aspirin 81 mg tablet,delayed release (DR/EC) 81 mg PO DAILY Qty: 30 0RF Patient Comments: Patient takes OTC albuterol sulfate 90 mcg/actuation HFA aerosol inhaler 1 inh inhalation QID PRN (Reason: shortness of breath or wheezing) Qty: 6.7 1RF lisinopril 20 mg tablet 20 mg PO DAILY 30 Days Qty: 30 0RF levothyroxine 50 mcg tablet 50 mcg PO DAILY 30 Days Qty: 30 0RF escitalopram oxalate 10 mg tablet 10 mg PO DAILY Print Language: [place]
[2024-06-08 18:49] VITALS: BP 159/79; PULSE 90; RESP 18; TEMP 36.8; O2SAT 97; BMI 24.8
[2024-06-08 19:13] LABS: MANUAL DIFF FLAG NO
[2024-06-08 19:16] LABS: Basophils Absolute Auto 0.1 X10*3/uL (0.0-0.2); Basophils Percent Auto 1.2 % (0-2); Eosinophils Absolute Auto 0.1 X10*3/uL (0.0-0.4); Eosinophils Percent Auto 1.5 % (0-4); Hematocrit 40.7 % (37.0-47.0); Hemoglobin 13.8 g/dl (12.0-16.0); Imm Gran Abs Auto 0.03 X10*3/uL (0.00-0.03); Imm Gran Pct Auto 0.4 % (0.0-0.4); Lymphocytes Percent Auto 14.3 % (20-40); Mean Corpuscular HGB Conc 33.9 g/dl (31.0-35.0); Mean Corpuscular Hemoglobin 33.8 pg (27.0-33.0); Mean Corpuscular Volume 99.8 fL (80.0-98.0); Mean Platelet Volume 10.4 fL (9.4-12.3); Monocytes Absolute Auto 0.4 X10*3/uL (0.1-1.2); Monocytes Percent Auto 4.9 % (2-11); Neutrophils Absolute Auto 5.7 x10*3/uL (2.0-8.3); Neutrophils Percent Auto 77.7 % (45-73); Platelet Count 111 X10*3/uL (160-400); Red Blood Count 4.08 X10*6/uL (4.20-5.50); Red Cell Distribution Width 14.2 % (11.0-16.0); White Blood Count 7.3 X10*3/uL (4.8-10.8)
[2024-06-08 19:27] LABS: INTERNATIONAL NORM RATIO 1.4 (0.9-1.1); Prothrombin Time 16.9 SEC (10.9-12.4)
[2024-06-08 19:48] LABS: Alanine Aminotransferase 29 U/L (0-31); Albumin Level 3.5 g/dL (3.5-5.0); Alkaline Phosphatase 281 U/L (39-117); Anion Gap 12 (12-20); Aspartate Amino Transferase 117 U/L (5-31); Bilirubin Total 5.2 mg/dL (0.0-1.0); Blood Urea Nitrogen 7 mg/dL (9-16); Calcium 9.1 mg/dL (8.4-10.2); Carbon Dioxide 28 mmol/L (22-29); Chloride 101 mmol/L (96-108); Creatinine Clr Calc Pharmacy 87.8; Estimated Glomerular Filt Rate > 60; Glucose Random 100 mg/dL (60-115); Lipase 38 U/L (8-78); Sodium 138 mmol/L (135-145); Total Protein 7.6 g/dL (6.5-8.0)
[2024-06-08 21:33] LABS: Ammonia 62 umol/L (13-55)
[2024-06-08 23:55] VITALS: BP 153/88; PULSE 85; RESP 16; TEMP 36.6; O2SAT 97
[2024-06-09 00:39] LABS: Appearance Urine Clear; Color Urine Dark Yellow; Glucose Urine UA Negative (Negative); Leukocyte Esterase Urine Trace (Negative); Nitrite Urine Negative (Negative); UMIC TRIGGER UACC YES; Urine Blood Negative (Negative); Urine Ketones Trace mg/dL (Negative); Urine Protein Negative (Neg-Trace)
[2024-06-09 00:42] LABS: Bacteria Urine None Seen (None Seen); Hyaline Casts Urine 0-2 /LPF (0-2); RBC Urine 0-2 /HPF (0-2); WBC Urine 0-5 /HPF (0-5)
[2024-06-09 00:49] VITALS: BP 149/86; PULSE 83; RESP 16; TEMP 36.8; O2SAT 98
[2024-06-09 00:56] VITALS: BP 131/80; PULSE 83; RESP 16; TEMP 36.9; O2SAT 97
[2024-06-09 01:11] LABS: MN% 90.6 %; PMN% 9.4 %; RBC Peritoneal Fluid 0.003 X10*6/uL
[2024-06-09 01:34] VITALS: BP 144/79; PULSE 89; RESP 15; TEMP 37.2; O2SAT 97
[2024-06-09 01:45] LABS: Neutrophils Peritoneal Fluid 1 %
[2024-06-09 01:47] LABS: BF Shift QC OK YES; Lymphocyte Peritoneal Fl 18 %; Monocytes Peritoneal Fl 11 %; Other Peritioneal Fl 70 %
[2024-06-09 03:22] VITALS: BP 115/69; PULSE 93; RESP 16; TEMP 36.9; O2SAT 97
[2024-06-09 06:20] VITALS: BP 111/62; PULSE 83; RESP 16; TEMP 37.2; O2SAT 93
[2024-06-09 06:59] VITALS: BP 111/62; PULSE 83; RESP 16; TEMP 37.2; O2SAT 93
[2024-06-12 15:31] LABS: Glucose Peritoneal Fluid 118
== END 2024-06-09 07:02 | disposition home or self-care (01) ==
PROVIDERS: Physician Assistant; Emergency Provider Emergency Medicine
DX: R10.2 Pelvic and perineal pain (principal); M54.50 Low back pain, unspecified; R18.8 Other ascites; Z79.899 Other long term (current) drug therapy
CPT/HCPCS: 36415; 80053; 81001; 82140; 82945; 83690; 85025; 85610; 87070; 87073; 87205; 89051; 99283; 99284